=== PATIENT | male | born 1975 | race Caucasian/White ===

== ENCOUNTER 2017-03-25 02:45 | Emergency (ER) | payer OTHER ==
[2017-03-25] MEDS ORDERED: ONDANSETRON 4 MG/2 ML VIAL IVP STA (03:04)
[2017-03-25] MEDS ORDERED: SODIUM CHLORIDE 0.9% 1,000 ML IV STA (03:04)
--- NOTE | 2017-03-25 03:09 | ED ---
General Adult HPI - General Chief complaint: Abdominal Pain Stated complaint: Abdominal/Back Pain Time Seen by Provider: 03/25/17 02:45 Source: patient, RN notes reviewed Mode of arrival: ambulatory Limitations: no limitations - History of Present Illness Initial comments: This is a 41-year-old male who presents emergency Department with a past medical history significant for alcoholism and pancreatitis. Patient states he' s been sober for 8 months and he basically started drinking again. Patient states a few days ago he started having abdominal pain in the epigastric region and he states it radiates to his back. Patient states this is exactly feels when he gets pancreatitis. Patient states she has Zofran at home so has not been vomiting. Patient states she's been drinking up to 8:00 this evening. Patient denies any diarrhea. Patient denies any fever or chills. Patient denies any chest pain difficulty breathing or shortness of breath. Patient denies headache patient denies numbness weakness. - Related Data Home Medications Medication Instructions Recorded Confirmed Lipase/Protease/Amylase [Creon Dr 2 cap PO TID 03/25/17 03/25/17 36,000 Units Capsule] Metoprolol Tartrate [Lopressor] 50 mg PO BID 03/25/17 03/25/17 Allergies Allergy/AdvReac Type Severity Reaction Status Date / Time No Known Allergies Allergy Verified 03/25/17 02:51 Review of Systems ROS Statement: Those systems with pertinent positive or pertinent negative responses have been documented in the HPI. ROS Other: All systems not noted in ROS Statement are negative. Past Medical History Past Medical History: Hypertension, Liver Disease, Renal Disease Additional Past Medical History / Comment(s): pancreatitis History of Any Multi-Drug Resistant Organisms: None Reported Past Surgical History: No Surgical Hx Reported Past Psychological History: No Psychological Hx Reported Smoking Status: Current every day smoker Past Alcohol Use History: Heavy Past Drug Use History: None Reported General Exam - General Exam Comments Initial Comments: GENERAL: Patient is well-developed and well-nourished. Patient is nontoxic and well- hydrated and is in mild distress. Patient appears intoxicated ENT: Neck is soft and supple. No significant lymphadenopathy is noted. Oropharynx is clear. Moist mucous membranes. Neck has full range of motion without eliciting any pain. EYES: The sclera were anicteric and conjunctiva were pink and moist. Extraocular movements were intact and pupils were equal round and reactive to light. Eyelids were unremarkable. PULMONARY: Unlabored respirations. Good breath sounds bilaterally. No audible rales rhonchi or wheezing was noted. CARDIOVASCULAR: There is a regular rate and rhythm without any murmurs gallops or rubs. ABDOMEN: Patient has mild tenderness in the epigastric region. No palpable organomegaly was noted. There is no palpable pulsatile mass. SKIN: Skin is clear with no lesions or rashes and otherwise unremarkable. NEUROLOGIC: Patient is alert and oriented x3. Cranial nerves II through XII are grossly intact. Motor and sensory are also intact. Normal speech, volume and content. Symmetrical smile. MUSCULOSKELETAL: Normal extremities with adequate strength and full range of motion. No lower extremity swelling or edema. No calf tenderness. LYMPHATICS: No significant lymphadenopathy is noted PSYCHIATRIC: Normal psychiatric evaluation. Limitations: no limitations Course Vital Signs 03/25/17 02:47 Temperature 98.9 F Pulse Rate 107 H Respiratory 20 Rate Blood Pressure 149/85 O2 Sat by Pulse 97 Oximetry Medical Decision Making - Medical Decision Making EKG shows a normal sinus rhythm at 93 bpm ID interval is 180 QRS is 88 QT interval 340. Patient's EKG shows no ST segment elevation or depression that seems concerning. I will back to reevaluate the patient he had no abdominal tenderness on second evaluation. I offered the patient GI cocktail consisted he still had some pain in the epigastric region even that wasn't tender to my palpation. He refused. I told the patient would want to get abdominal x-ray he refused that as well. At that was done and the patient was 118 at 5:00. He was walking around ambulate without problem he was clinically sober. - Lab Data Result diagrams: 03/25/17 04:12 03/25/17 04:12 Lab Results 03/25/17 03/25/17 03/25/17 Range/Units 03:35 04:12 04:12 WBC 9.4 (3.8-10.6) k/uL RBC 4.47 (4.30-5.90) m/uL Hgb 14.2 (13.0-17.5) gm/dL Hct 42.5 (39.0-53.0) % MCV 95.2 (80.0-100.0) fL MCH 31.8 (25.0-35.0) pg MCHC 33.5 (31.0-37.0) g/dL RDW 13.2 (11.5-15.5) % Plt Count 183 (150-450) k/uL Neutrophils % 48 % Lymphocytes % 38 % Monocytes % 6 % Eosinophils % 4 % Basophils % 1 % Neutrophils # 4.5 (1.3-7.7) k/uL Lymphocytes # 3.5 (1.0-4.8) k/uL Monocytes # 0.5 (0-1.0) k/uL Eosinophils # 0.4 (0-0.7) k/uL Basophils # 0.1 (0-0.2) k/uL PT 10.6 (9.0-12.0) sec INR 1.1 (<1.1) APTT 24.4 (22.0-30.0) sec Sodium (137-145) mmol/L Potassium (3.5-5.1) mmol/L Chloride (98-107) mmol/L Carbon Dioxide (22-30) mmol/L Anion Gap mmol/L BUN (9-20) mg/dL Creatinine (0.66-1.25) mg/dL Est GFR (MDRD) Af Amer (>60 ml/min/1.73 sqM) Est GFR (MDRD) Non-Af (>60 ml/min/1.73 sqM) Glucose (74-99) mg/dL Calcium (8.4-10.2) mg/dL Total Bilirubin (0.2-1.3) mg/dL AST (17-59) U/L ALT (21-72) U/L Alkaline Phosphatase (38-126) U/L Troponin I <0.012 (0.000-0.034) ng/mL Total Protein (6.3-8.2) g/dL Albumin (3.5-5.0) g/dL Amylase (30-110) U/L Lipase (23-300) U/L Serum Alcohol mg/dL 03/25/17 Range/Units 04:12 WBC (3.8-10.6) k/uL RBC (4.30-5.90) m/uL Hgb (13.0-17.5) gm/dL Hct (39.0-53.0) % MCV (80.0-100.0) fL MCH (25.0-35.0) pg MCHC (31.0-37.0) g/dL RDW (11.5-15.5) % Plt Count (150-450) k/uL Neutrophils % % Lymphocytes % % Monocytes % % Eosinophils % % Basophils % % Neutrophils # (1.3-7.7) k/uL Lymphocytes # (1.0-4.8) k/uL Monocytes # (0-1.0) k/uL Eosinophils # (0-0.7) k/uL Basophils # (0-0.2) k/uL PT (9.0-12.0) sec INR (<1.1) APTT (22.0-30.0) sec Sodium 141 (137-145) mmol/L Potassium 3.9 (3.5-5.1) mmol/L Chloride 110 H (98-107) mmol/L Carbon Dioxide 24 (22-30) mmol/L Anion Gap 7 mmol/L BUN 14 (9-20) mg/dL Creatinine 1.30 H (0.66-1.25) mg/dL Est GFR (MDRD) Af Amer >60 (>60 ml/min/1.73 sqM) Est GFR (MDRD) Non-Af >60 (>60 ml/min/1.73 sqM) Glucose 103 H (74-99) mg/dL Calcium 8.4 (8.4-10.2) mg/dL Total Bilirubin 0.3 (0.2-1.3) mg/dL AST 28 (17-59) U/L ALT 34 (21-72) U/L Alkaline Phosphatase 85 (38-126) U/L Troponin I (0.000-0.034) ng/mL Total Protein 5.7 L (6.3-8.2) g/dL Albumin 3.4 L (3.5-5.0) g/dL Amylase 65 (30-110) U/L Lipase 43 (23-300) U/L Serum Alcohol 180 mg/dL Disposition Clinical Impression: Alcohol intoxication, Epigastric abdominal pain, Abdominal pain Disposition: HOME SELF-CARE Instructions: Abdominal Pain (ED) Referrals: Nonstaff,Physician [Primary Care Provider] - 1-2 days Time of Disposition: 05:25
[2017-03-25 04:23] LABS: Basophils # (A) 0.1 k/uL (0-0.2); Basophils % (A) 1 %; CH 31.8; CHCM 33.5; Eosinophils # (A) 0.4 k/uL (0-0.7); Eosinophils % (A) 4 %; HCT 42.5 % (39.0-53.0); HGB 14.2 gm/dL (13.0-17.5); Luc % (Auto) 3; Lymphocytes # (A) 3.5 k/uL (1.0-4.8); Lymphocytes % (A) 38 %; MCH 31.8 pg (25.0-35.0); MCHC 33.5 g/dL (31.0-37.0); MCV 95.2 fL (80.0-100.0); Mean Platelet Volume 7.5; Monocytes # (A) 0.5 k/uL (0-1.0); Monocytes % (A) 6 %; Neutrophils # (A) 4.5 k/uL (1.3-7.7); Neutrophils % (A) 48 %; RBC 4.47 m/uL (4.30-5.90); RDW 13.2 % (11.5-15.5); WBC 9.4 k/uL (3.8-10.6); WBC (Perox) 9.53
[2017-03-25 04:32] LABS: INR 1.1 (<1.1); Partial Thromboplastin Time 24.4 sec (22.0-30.0); Prothrombin Time 10.6 sec (9.0-12.0)
[2017-03-25 04:33] LABS: ALT 34 U/L (21-72); AST 28 U/L (17-59); Alkaline Phosphatase 85 U/L (38-126); Amylase 65 U/L (30-110); Anion Gap 7 mmol/L; Blood Urea Nitrogen 14 mg/dL (9-20); Calcium 8.4 mg/dL (8.4-10.2); Carbon Dioxide 24 mmol/L (22-30); Chloride 110 mmol/L (98-107); Glucose 103 mg/dL (74-99); Non-African American GFR(MDRD) >60 (>60 ml/min/1.73 sqM); Potassium 3.9 mmol/L (3.5-5.1); Sodium 141 mmol/L (137-145); Total Bilirubin 0.3 mg/dL (0.2-1.3); Total Protein 5.7 g/dL (6.3-8.2)
[2017-03-25 04:34] LABS: Alcohol 180 mg/dL
[2017-03-25 05:34] VITALS: BP 139/86; PULSE 80; RESP 18; TEMP 98
== END 2017-03-25 05:35 | disposition home or self-care (01) ==
LOC: EC 02:45
DX: F10.129 Alcohol abuse with intoxication, unspecified (principal); R10.13 Epigastric pain; I10 Essential (primary) hypertension; F17.200 Nicotine dependence, unspecified, uncomplicated; Z79.899 Other long term (current) drug therapy; Z87.19 Personal history of other diseases of the digestive system
CPT/HCPCS: 36415; 93005; 80053; 82150; 83690; 84484; 85025; 85610; 85730; 80320; 99284; 96374; 96361 ×2; J2405

== ENCOUNTER 2017-04-12 18:59 | Inpatient (IN) | payer OTHER ==
[2017-04-12] MEDS ORDERED: KETOROLAC 30 MG/ML 1 ML VIAL IVP STA (20:53)
[2017-04-12] MEDS ORDERED: ONDANSETRON 4 MG/2 ML VIAL IVP STA (20:53)
[2017-04-12] MEDS ORDERED: LORazepam 2 MG/ML SYRINGE IV STA (20:53)
[2017-04-12] MEDS ORDERED: SODIUM CHLORIDE 0.9% 1,000 ML IV ONE (20:53)
[2017-04-12] MEDS ORDERED: NICOTINE 21MG/24HR PATCH TRANSDERM STA (21:55)
[2017-04-12 22:09] LABS: Appearance,Urine Clear (Clear); Bilirubin,Urine Negative (Negative); Glucose,Urine (UA) Negative (Negative); Ketones,Urine Negative (Negative); Leukocyte Esterase,Urine Negative (Negative); Nitrite,Urine Negative (Negative); PH, Urine 5.5 (5.0-8.0); Particle Count 553; Protein,Urine 2+ (Negative); Specific Gravity,Urine 1.006 (1.001-1.035); UA Billing (MACRO vs. MICRO) MICRO; Urobilinogen,Urine <2.0 mg/dL (<2.0)
[2017-04-12 22:10] LABS: Basophils # (A) 0.1 k/uL (0-0.2); Basophils % (A) 1 %; CH 32.4; CHCM 33.7; Eosinophils # (A) 0.3 k/uL (0-0.7); Eosinophils % (A) 2 %; HCT 50.8 % (39.0-53.0); HDW 2.03; HGB 16.7 gm/dL (13.0-17.5); Luc # (Auto) 0.33; Luc % (Auto) 3; Lymphocytes # (A) 2.6 k/uL (1.0-4.8); Lymphocytes % (A) 20 %; MCH 31.8 pg (25.0-35.0); MCV 96.3 fL (80.0-100.0); Monocytes # (A) 0.5 k/uL (0-1.0); Monocytes % (A) 4 %; Neutrophils # (A) 9.3 k/uL (1.3-7.7); Neutrophils % (A) 72 %; RBC 5.27 m/uL (4.30-5.90); RDW 13.6 % (11.5-15.5); WBC (Perox) 12.43
[2017-04-12 22:19] LABS: ALT 27 U/L (21-72); AST 31 U/L (17-59); Alkaline Phosphatase 120 U/L (38-126); Anion Gap 12 mmol/L; Blood Urea Nitrogen 21 mg/dL (9-20); Calcium 9.1 mg/dL (8.4-10.2); Carbon Dioxide 24 mmol/L (22-30); Chloride 103 mmol/L (98-107); Glucose 97 mg/dL (74-99); Non-African American GFR(MDRD) >60 (>60 ml/min/1.73 sqM); Potassium 4.3 mmol/L (3.5-5.1); Sodium 139 mmol/L (137-145); Total Bilirubin 0.7 mg/dL (0.2-1.3); Total Protein 7.1 g/dL (6.3-8.2)
[2017-04-12 22:20] LABS: Alcohol 120 mg/dL
--- NOTE | 2017-04-12 22:30 | ED ---
General Adult HPI - General Chief complaint: Psychiatric Symptoms Stated complaint: vomiting,abd pain Time Seen by Provider: 04/12/17 20:37 Source: patient, RN notes reviewed Mode of arrival: ambulatory Limitations: no limitations - History of Present Illness Initial comments: 41-year-old male with history of alcohol abuse and chronic pancreatitis presenting for abdominal pain and back pain. Patient states he has been trying to quit drinking and his longest period of sobriety was 5 years. However he has been drinking again recently. He states he normally drinks beer. He states he drank 4-5 cans today. He states his abdominal pain is been worsening and he believes is having acute pancreatitis. He also states he is feeling suicidal due to his chronic pains and alcoholism. He denies any specific plan. He denies other drug use. He states he is worried he is going into alcohol withdrawal. - Related Data Home Medications Medication Instructions Recorded Confirmed Lipase/Protease/Amylase [Lois Cunningham 2 cap PO AC-TID 03/25/17 04/12/17 36,000 Units Capsule] Albuterol Inhaler [Ventolin Hfa 2 puff INHALATION RT-Q4H PRN 04/12/17 04/12/17 Inhaler] Cholecalciferol [Vitamin D3] 2,000 unit PO DAILY 04/12/17 04/12/17 Gabapentin [Neurontin] 100 mg PO QAM 04/12/17 04/12/17 Lipase/Protease/Amylase [Lois Cunningham 1 cap PO DAILY PRN 04/12/17 04/12/17 36,000 Units Capsule] Metoprolol Tartrate [Lopressor] 50 mg PO BID-W/MEALS 04/12/17 04/12/17 Tadalafil [Cialis] 5 mg PO DAILY PRN 04/12/17 04/12/17 Tiotropium [place] [Spiriva 2 puff INHALATION RT-DAILY 04/12/17 04/12/17 Respimat] buPROPion XL [Wellbutrin XL] 150 mg PO QAM 04/12/17 04/12/17 rOPINIRole HCL [Requip] 0.5 mg PO HS PRN 04/12/17 04/12/17 Previous Rx's Medication Instructions Recorded hydrOXYzine PAMOATE [Vistaril] 25 mg PO Q6HR PRN #90 cap 04/14/17 Allergies Allergy/AdvReac Type Severity Reaction Status Date / Time No Known Allergies Allergy Verified 04/12/17 20:35 Review of Systems ROS Statement: Those systems with pertinent positive or pertinent negative responses have been documented in the HPI. ROS Other: All systems not noted in ROS Statement are negative. Past Medical History Past Medical History: Hypertension, Liver Disease, Renal Disease Additional Past Medical History / Comment(s): pancreatitis History of Any Multi-Drug Resistant Organisms: None Reported Past Surgical History: No Surgical Hx Reported Past Psychological History: No Psychological Hx Reported Smoking Status: Current every day smoker Past Alcohol Use History: Heavy Past Drug Use History: None Reported - Past Family History Mother Additional Family Medical History / Comment(s): Mother is alive at age 62 with history of hypertension. Father Additional Family Medical History / Comment(s): Father at age 36 from overdose of methadone and benzodiazepines with aspiration. Brother(s) Additional Family Medical History / Comment(s): Patient has 2 brothers with no major medical problems. Patient does not have any sisters. Patient does not have any children. General Exam - General Exam Comments Initial Comments: General: Awake and Alert. No acute distress. Does not appear acutely ill. Eyes: TIN, EOM intact. No nystagmus. No scleral icterus. HENT: Atraumatic, normocephalic. Mucous membranes moist. Trachea midline. Neck: The neck is supple, there is no tenderness or JVD. Cardiovascular: Regular rate and rhythm. No murmur, rub, or gallop is appreciated. Distal pulses intact. Respiratory: Lungs are clear to auscultation bilaterally. No wheezes, rales, rhonchi. No respiratory distress. Gastrointestinal: Soft, mild diffuse tenderness. No rebound or guarding. Non- distended. No masses or organomegaly noted. No CVA tenderness. Musculoskeletal: No tenderness. Normal ROM. No gross deformity. No strength deficits. Neurological: A&Ox3. CN II-XII grossly intact, There are no obvious motor or sensory deficits. Coordination appears grossly intact. Speech is normal. Mild tremor. Skin: Skin is warm and dry and no rashes or lesions are noted. Psychiatric: Cooperative. Positive suicidal ideations. Limitations: no limitations Course Vital Signs 04/12/17 04/12/17 04/13/17 19:39 21:53 02:49 Temperature 97.2 F L Pulse Rate 58 L 102 H 97 Respiratory 20 18 16 Rate Blood Pressure 123/84 138/79 131/97 O2 Sat by Pulse 98 97 97 Oximetry Medical Decision Making - Medical Decision Making 41-year-old male with history of alcohol abuse and chronic pancreatitis presenting for abdominal pain. Patient also with suicidal ideations, although no specific plan. Does admit to drinking today. Initial alcohol 120. Lab work with mild leukocytosis, likely reactive abdominal pain and nausea and vomiting. BMP stable. LFTs stable. Lipase is negative. UDS positive benzodiazepines. Patient requesting pain medications multiple times. MAPS report was run without any evidence of home narcotic medications since June 2016 for a short term Rx. Given his intoxicated state no additional narcotic medications were given at this time due to no evidence of acute pancreatitis. Given negative medical workup at this time, patient to be cleared once sober for mental health evaluation due to suicidal ideations and substance abuse. 12:00 AM. Repeat alcohol below legal limit. Patient was medically cleared for EPS evaluation. Patient signed out overnight physician pending EPS evaluation and final disposition. Late entry 04/14/17 Patient was admitted to psych floor. - Lab Data Result diagrams: 04/12/17 21:57 04/12/17 21:57 Lab Results 04/12/17 04/12/17 04/12/17 Range/Units 21:57 21:57 21:57 WBC 13.0 H (3.8-10.6) k/uL RBC 5.27 (4.30-5.90) m/uL Hgb 16.7 (13.0-17.5) gm/dL Hct 50.8 (39.0-53.0) % MCV 96.3 (80.0-100.0) fL MCH 31.8 (25.0-35.0) pg MCHC 33.0 (31.0-37.0) g/dL RDW 13.6 (11.5-15.5) % Plt Count 229 (150-450) k/uL Neutrophils % 72 % Lymphocytes % 20 % Monocytes % 4 % Eosinophils % 2 % Basophils % 1 % Neutrophils # 9.3 H (1.3-7.7) k/uL Lymphocytes # 2.6 (1.0-4.8) k/uL Monocytes # 0.5 (0-1.0) k/uL Eosinophils # 0.3 (0-0.7) k/uL Basophils # 0.1 (0-0.2) k/uL Sodium 139 (137-145) mmol/L Potassium 4.3 (3.5-5.1) mmol/L Chloride 103 (98-107) mmol/L Carbon Dioxide 24 (22-30) mmol/L Anion Gap 12 mmol/L BUN 21 H (9-20) mg/dL Creatinine 1.23 (0.66-1.25) mg/dL Est GFR (MDRD) Af Amer >60 (>60 ml/min/1.73 sqM) Est GFR (MDRD) Non-Af >60 (>60 ml/min/1.73 sqM) Glucose 97 (74-99) mg/dL Calcium 9.1 (8.4-10.2) mg/dL Total Bilirubin 0.7 (0.2-1.3) mg/dL AST 31 (17-59) U/L ALT 27 (21-72) U/L Alkaline Phosphatase 120 (38-126) U/L Total Protein 7.1 (6.3-8.2) g/dL Albumin 4.2 (3.5-5.0) g/dL Lipase 41 (23-300) U/L TSH (0.465-4.680) mIU/L Urine Color Urine Appearance (Clear) Urine pH (5.0-8.0) Ur Specific [place] (1.001-1.035) Urine Protein (Negative) Urine Glucose (UA) (Negative) Urine Ketones (Negative) Urine Blood (Negative) Urine Nitrite (Negative) Urine Bilirubin (Negative) Urine Urobilinogen (<2.0) mg/dL Ur Leukocyte Esterase (Negative) Urine Opiates Screen Not Detected (NotDetected) Ur Oxycodone Screen Not Detected (NotDetected) Urine Methadone Screen Not Detected (NotDetected) Ur Propoxyphene Screen Not Detected (NotDetected) Ur Barbiturates Screen Not Detected (NotDetected) U Tricyclic Antidepress Not Detected (NotDetected) Ur Phencyclidine Scrn Not Detected (NotDetected) Ur Amphetamines Screen Not Detected (NotDetected) U Methamphetamines Scrn Not Detected (NotDetected) U Benzodiazepines Scrn Detected H (NotDetected) Urine Cocaine Screen Not Detected (NotDetected) U Marijuana (THC) Screen Not Detected (NotDetected) Serum Alcohol 120 mg/dL 04/12/17 04/12/17 Range/Units 21:57 21:57 WBC (3.8-10.6) k/uL RBC (4.30-5.90) m/uL Hgb (13.0-17.5) gm/dL Hct (39.0-53.0) % MCV (80.0-100.0) fL MCH (25.0-35.0) pg MCHC (31.0-37.0) g/dL RDW (11.5-15.5) % Plt Count (150-450) k/uL Neutrophils % % Lymphocytes % % Monocytes % % Eosinophils % % Basophils % % Neutrophils # (1.3-7.7) k/uL Lymphocytes # (1.0-4.8) k/uL Monocytes # (0-1.0) k/uL Eosinophils # (0-0.7) k/uL Basophils # (0-0.2) k/uL Sodium (137-145) mmol/L Potassium (3.5-5.1) mmol/L Chloride (98-107) mmol/L Carbon Dioxide (22-30) mmol/L Anion Gap mmol/L BUN (9-20) mg/dL Creatinine (0.66-1.25) mg/dL Est GFR (MDRD) Af Amer (>60 ml/min/1.73 sqM) Est GFR (MDRD) Non-Af (>60 ml/min/1.73 sqM) Glucose (74-99) mg/dL Calcium (8.4-10.2) mg/dL Total Bilirubin (0.2-1.3) mg/dL AST (17-59) U/L ALT (21-72) U/L Alkaline Phosphatase (38-126) U/L Total Protein (6.3-8.2) g/dL Albumin (3.5-5.0) g/dL Lipase (23-300) U/L TSH 0.892 (0.465-4.680) mIU/L Urine Color Light Yellow Urine Appearance Clear (Clear) Urine pH 5.5 (5.0-8.0) Ur Specific [place] 1.006 (1.001-1.035) Urine Protein 2+ H (Negative) Urine Glucose (UA) Negative (Negative) Urine Ketones Negative (Negative) Urine Blood Negative (Negative) Urine Nitrite Negative (Negative) Urine Bilirubin Negative (Negative) Urine Urobilinogen <2.0 (<2.0) mg/dL Ur Leukocyte Esterase Negative (Negative) Urine Opiates Screen (NotDetected) Ur Oxycodone Screen (NotDetected) Urine Methadone Screen (NotDetected) Ur Propoxyphene Screen (NotDetected) Ur Barbiturates Screen (NotDetected) U Tricyclic Antidepress (NotDetected) Ur Phencyclidine Scrn (NotDetected) Ur Amphetamines Screen (NotDetected) U Methamphetamines Scrn (NotDetected) U Benzodiazepines Scrn (NotDetected) Urine Cocaine Screen (NotDetected) U Marijuana (THC) Screen (NotDetected) Serum Alcohol mg/dL Disposition Clinical Impression: Alcohol abuse, Alcohol intoxication, Abdominal pain, Suicidal ideation Disposition: ADMITTED IP TO THIS [facility] Condition: Stable Decision to Admit Reason: Admit from EC
[2017-04-13 02:50] VITALS: RESP 16
[2017-04-13] MEDS ORDERED: LORazepam 1 MG TAB ONE ×2 (03:23→03:55)
[2017-04-13] MEDS ORDERED: MAGNESIUM HYDROXIDE 2,400 MG/10 ML CUP PO PRN (06:21)
[2017-04-13] MEDS ORDERED: ZIPRASIDONE 20 MG VIAL IM PRN (06:21)
[2017-04-13] MEDS ORDERED: MAG HYDROX/AL HYDROX/SIMETH 30 ML CUP PO PRN (06:21)
[2017-04-13] MEDS ORDERED: LIPASE 5,000/PROTEASE 17,000/AMYLASE 27,0000 PO PRN (06:41)
[2017-04-13] MEDS: LIPASE 5,000/PROTEASE 17,000/AMYLASE 27,0000 PO SCH ×3 (08:28→18:10)
[2017-04-13] MEDS: METOPROLOL TARTRATE 50 MG TAB PO SCH ×2 (08:29→18:10)
[2017-04-13] MEDS: buPROPion XL 150 MG TAB.ER.24H PO SCH (08:29)
[2017-04-13] MEDS: GABAPENTIN 100 MG CAP PO SCH (08:30)
[2017-04-13] MEDS: NICOTINE 21MG/24HR PATCH TRANSDERM SCH (08:30)
[2017-04-13] MEDS: LORazepam 1 MG TAB PO PRN ×3 (08:33→22:56)
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
[2017-04-13] MEDS: ONDANSETRON 4 MG TAB PO PRN (10:21)
[2017-04-13] MEDS: TIOTROPIUM 18 MCG/PUFF INHALER INHALATION SCH (12:12)
[2017-04-13] MEDS: CHOLECALCIFEROL 1,000 UNIT TAB PO SCH (13:03)
--- NOTE | 2017-04-13 15:26 | P.CONS ---
History of Present Illness - Reason for Consult Consult date: 04/13/17 Medical management - History of Present Illness This is a 41-year-old male. He does not have a primary care physician. He has a past medical history of COPD, chronic alcoholic pancreatitis, can't scratch fever,. Patient states he has chronic pain and has been drinking but he's had trouble due to vomiting. He states he only drank 2 beers yesterday and could not keep it down. He came into [facility] emergency center for evaluation. He states he received one bag of IV fluids in the emergency center. Serum alcohol level was 120. Urine drug screen was positive for benzodiazepines. TSH 0.892. Patient has been admitted to the mental health unit. Review of Systems All systems: negative Constitutional: Denies chills, Denies fever Eyes: denies blurred vision, denies pain Ears, nose, mouth and throat: Denies headache, Denies sore throat Cardiovascular: Denies chest pain, Denies shortness of breath Respiratory: Denies cough Gastrointestinal: Denies abdominal pain, Denies diarrhea, Denies nausea, Denies vomiting Musculoskeletal: Denies myalgias Integumentary: Denies pruritus, Denies rash Neurological: Denies numbness, Denies weakness Psychiatric: Reports depression, Denies anxiety Endocrine: Denies fatigue, Denies weight change Past Medical History Past Medical History: COPD, Hypertension, Liver Disease, Renal Disease Additional Past Medical History / Comment(s): Chronic alcoholic pancreatitis, cat scratch fever History of Any Multi-Drug Resistant Organisms: None Reported Past Surgical History: No Surgical Hx Reported Additional Past Surgical History / Comment(s): Bronchoscopy, lymph node removed Past Psychological History: No Psychological Hx Reported Smoking Status: Current every day smoker Past Alcohol Use History: Heavy Additional Past Alcohol Use History / Comment(s): Patient is a smoker of one and half packs per day since he was 15 years of age. He denies any medical marijuana, marijuana, street drug use. He usually drinks more than a fifth per day and drinks both liquor and beer. Past Drug Use History: None Reported - Past Family History Mother Additional Family Medical History / Comment(s): Mother is alive at age 62 with history of hypertension. Father Additional Family Medical History / Comment(s): Father at age 36 from overdose of methadone and benzodiazepines with aspiration. Brother(s) Additional Family Medical History / Comment(s): Patient has 2 brothers with no major medical problems. Patient does not have any sisters. Patient does not have any children. Medications and Allergies Home Medications Medication Instructions Recorded Confirmed Type Lipase/Protease/Amylase [Lois Cunningham 2 cap PO AC-TID 03/25/17 04/12/17 History 36,000 Units Capsule] Albuterol Inhaler [Ventolin Hfa 2 puff INHALATION RT-Q4H PRN 04/12/17 04/12/17 History Inhaler] Cholecalciferol [Vitamin D3] 2,000 unit PO DAILY 04/12/17 04/12/17 History Gabapentin [Neurontin] 100 mg PO QAM 04/12/17 04/12/17 History Lipase/Protease/Amylase [Lois Cunningham 1 cap PO DAILY PRN 04/12/17 04/12/17 History 36,000 Units Capsule] Metoprolol Tartrate [Lopressor] 50 mg PO BID-W/MEALS 04/12/17 04/12/17 History Tadalafil [Cialis] 5 mg PO DAILY PRN 04/12/17 04/12/17 History Tiotropium [place] [Spiriva 2 puff INHALATION RT-DAILY 04/12/17 04/12/17 History Respimat] buPROPion XL [Wellbutrin Xl] 150 mg PO QAM 04/12/17 04/12/17 History rOPINIRole HCL [Requip] 0.5 mg PO HS PRN 04/12/17 04/12/17 History Allergies Allergy/AdvReac Type Severity Reaction Status Date / Time No Known Allergies Allergy Verified 04/12/17 20:35 Physical Exam Vitals: Vital Signs Temp Pulse Pulse Resp BP BP Pulse Ox 04/13/17 13:05 91 126/88 04/13/17 06:11 98.1 F 93 16 138/101 04/13/17 02:49 97 16 131/97 97 04/12/17 21:53 102 H 18 138/79 97 04/12/17 19:39 97.2 F L 58 L 20 123/84 98 Intake and Output 04/12/17 04/13/17 04/13/17 22:59 06:59 14:59 Other: Weight 90.718 kg 89.046 kg Gen: This is a 41-year-old male. He is cooperative and appears to be in no acute distress. HEENT: Head is atraumatic, normocephalic. Pupils equal, round. Sclerae is anicteric. NECK: Supple. No JVD. No lymphadenopathy. No thyromegaly. LUNGS: Clear to auscultation. No wheezes or rhonchi. No intercostal retractions. HEART: Regular rate and rhythm. No murmur. ABDOMEN: Soft. Bowel sounds are present. No masses. No tenderness. EXTREMITIES: No pedal edema. No calf tenderness. NEUROLOGICAL: Patient is awake, alert and oriented x3. Cranial nerves 2 through 12 are grossly intact. Results CBC & Chem 7: 04/12/17 21:57 04/12/17 21:57 Labs: Abnormal Lab Results - Last 24 Hours (Table) 04/12/17 04/12/17 04/12/17 Range/Units 21:57 21:57 21:57 WBC 13.0 H (3.8-10.6) k/uL Neutrophils # 9.3 H (1.3-7.7) k/uL BUN 21 H (9-20) mg/dL Urine Protein (Negative) U Benzodiazepines Scrn Detected H (NotDetected) 04/12/17 Range/Units 21:57 WBC (3.8-10.6) k/uL Neutrophils # (1.3-7.7) k/uL BUN (9-20) mg/dL Urine Protein 2+ H (Negative) U Benzodiazepines Scrn (NotDetected) Assessment and Plan Plan: 1. Depression with history of alcohol abuse. Patient admitted to the mental health unit. Continue current plan of care. 2. History of chronic alcoholic pancreatitis. Continue Creon. 3. Tobacco use and dependence. Continue nicotine patch. 4. COPD. Continue Ventolin inhaler and Spiriva. 5. Hypertension. Continue metoprolol 50 mg twice daily. Impression and plan of care have been directed as dictated by the signing physician. Nicki Wilson nurse practitioner acting as scribe for signing physician.
[2017-04-13] MEDS: ALBUTEROL INHALER 60 PUFF/8 GM INHALER INHALATION PRN (19:14)
[2017-04-14] MEDS: LORazepam 1 MG TAB PO PRN (07:00)
[2017-04-14] MEDS: ONDANSETRON 4 MG TAB PO PRN ×2 (07:10→16:54)
[2017-04-14] MEDS: ACETAMINOPHEN TAB 325 MG TAB PO PRN ×2 (07:14→17:59)
[2017-04-14] MEDS: METOPROLOL TARTRATE 50 MG TAB PO SCH ×2 (09:02→17:31)
[2017-04-14] MEDS: LIPASE 5,000/PROTEASE 17,000/AMYLASE 27,0000 PO SCH ×3 (09:02→16:54)
[2017-04-14] MEDS: GABAPENTIN 100 MG CAP PO SCH (09:03)
[2017-04-14] MEDS: buPROPion XL 150 MG TAB.ER.24H PO SCH (09:03)
[2017-04-14] MEDS: NICOTINE 21MG/24HR PATCH TRANSDERM SCH (09:04)
[2017-04-14] MEDS: TIOTROPIUM 18 MCG/PUFF INHALER INHALATION SCH (10:53)
[2017-04-14] MEDS: ALBUTEROL INHALER 60 PUFF/8 GM INHALER INHALATION PRN ×2 (10:53→21:56)
--- NOTE | 2017-04-14 12:52 | P.PN ---
Progress Note - Text INTERVERAL HISTORY:Patient admitted for vague suicidal ideation secondary to pain of pancreatitis, no plan. Reported history of etoh use, mod-severe. Recently at [facility] but left early, now wanting to retry. Pain is tolerable. Patient's mood/euthymic is seen as when interacting on unit, but irritable at times with staff and constricted in interview. Patient has an option of going to 3/4 house today. Denies suicidal ideation Selected Entries 04/13/17 04/14/17 22:57 06:59 Temperature 98.3 F Pulse Rate 88 69 Left Sitting Respiratory 16 Rate Blood Pressure 128/83 127/69 Left Arm Sitting Blood Pressure 98 88 Mean Left Arm Sitting MENTAL STATUS EXAM:Patient alert and oriented 3, good eye contact, fair groomed in street clothing. Speech normal volume, rate and production. Coherent, logical and goal directed thought process. No ANNA, no FOI. No TB/TW/ TI Denied auditory and visual hallucinations. Denied paranoid ideation, delusions or IOR. Memory intact Cognitionaverage Mood neutral , affect full range, normal intensity, congruent with mood. Denies suicidal ideation, denies homicidal ideation. Insight limited; Judgment grossly intact No evidence of withdrawal, VSS stable. ETOH use, severe, PLAN:Discharge today to [facility], patient has pending appointment for [facility]
[2017-04-14] MEDS: CHOLECALCIFEROL 1,000 UNIT TAB PO SCH (13:04)
--- NOTE | 2017-04-14 13:16 | P.DS ---
Providers Date of admission: 04/13/17 02:37 Expected date of discharge: 04/14/17 Attending physician: Giovanna Stephenson MD Consults: 04/13/17 06:21 Consult Physician Routine Consulting Provider: Kasey Groves Consult Reason/Comments: H & P and medical follow up Do you want consulting provider notified?: Yes, Notify in am Primary care physician: Stated None Hospital Course: Patient admitted for vague suicidal ideation secondary to pain of pancreatitis, no plan. Reported history of etoh use, mod-severe. Recently at [facility] but left early, now wanting to retry. Pain is tolerable. Patient's mood/euthymic is seen as when interacting on unit, but irritable at times with staff and constricted in interview. Patient has an option of going to 3/4 house today. Denies suicidal ideation Selected Entries 04/13/17 04/14/17 22:57 06:59 Temperature 98.3 F Pulse Rate 88 69 Left Sitting Respiratory 16 Rate Blood Pressure 128/83 127/69 Left Arm Sitting Blood Pressure 98 88 Mean Left Arm Sitting MENTAL STATUS EXAM:Patient alert and oriented 3, good eye contact, fair groomed in street clothing. Speech normal volume, rate and production. Coherent, logical and goal directed thought process. No ANNA, no FOI. No TB/TW/ TI Denied auditory and visual hallucinations. Denied paranoid ideation, delusions or IOR. Memory intact Cognitionaverage Mood neutral , affect full range, normal intensity, congruent with mood. Denies suicidal ideation, denies homicidal ideation. Insight limited; Judgment grossly intact No evidence of withdrawal, VSS stable. No suicidal ideation, plan or intent ETOH use, severe, PLAN:Discharge today to [facility], patient has pending appointment for [facility] Pertinent Studies: none Procedures: none Patient Condition at Discharge: Stable Plan - Discharge Summary New Discharge Prescriptions: hydrOXYzine PAMOATE [Vistaril] 25 mg PO Q6HR PRN #90 cap PRN Reason: Anxiety Discharge Medication List Lipase/Protease/Amylase [Lois Cunningham 36,000 Units Capsule] 2 cap PO AC-TID [History] Albuterol Inhaler [Ventolin Hfa Inhaler] 2 puff INHALATION RT-Q4H PRN 04/12/17 [ History] Cholecalciferol [Vitamin D3] 2,000 unit PO DAILY 04/12/17 [History] Gabapentin [Neurontin] 100 mg PO QAM 04/12/17 [History] Lipase/Protease/Amylase [Lois Cunningham 36,000 Units Capsule] 1 cap PO DAILY PRN 04/12 [History] Metoprolol Tartrate [Lopressor] 50 mg PO BID-W/MEALS 04/12/17 [History] Tadalafil [Cialis] 5 mg PO DAILY PRN 04/12/17 [History] Tiotropium [place] [Spiriva Respimat] 2 puff INHALATION RT-DAILY 04/12/17 [ History] buPROPion XL [Wellbutrin XL] 150 mg PO QAM 04/12/17 [History] rOPINIRole HCL [Requip] 0.5 mg PO HS PRN 04/12/17 [History] hydrOXYzine PAMOATE [Vistaril] 25 mg PO Q6HR PRN #90 cap 04/14/17 [Rx] Follow up Appointment(s)/Referral(s): [facility] [Outside] - 04/28/17 10:15 am (Intake 04/28/17 at 10: 15 am) None,Stated [Primary Care Provider] - 1-2 days Discharge Disposition: HOME SELF-CARE
[2017-04-14] MEDS: hydrOXYzine PAMOATE 25 MG CAP PO PRN (16:53)
[2017-04-15 06:50] VITALS: BP 135/86; PULSE 79; TEMP 98.2
[2017-04-15] MEDS: METOPROLOL TARTRATE 50 MG TAB PO SCH (08:08)
[2017-04-15] MEDS: buPROPion XL 150 MG TAB.ER.24H PO SCH (08:08)
[2017-04-15] MEDS: LIPASE 5,000/PROTEASE 17,000/AMYLASE 27,0000 PO SCH ×2 (08:08→12:56)
[2017-04-15] MEDS: GABAPENTIN 100 MG CAP PO SCH (08:08)
[2017-04-15] MEDS: NICOTINE 21MG/24HR PATCH TRANSDERM SCH (08:08)
[2017-04-15] MEDS: hydrOXYzine PAMOATE 25 MG CAP PO PRN (08:09)
[2017-04-15] MEDS: ALBUTEROL INHALER 60 PUFF/8 GM INHALER INHALATION PRN (09:06)
[2017-04-15] MEDS: TIOTROPIUM 18 MCG/PUFF INHALER INHALATION SCH (09:06)
[2017-04-15] MEDS: ACETAMINOPHEN TAB 325 MG TAB PO PRN (09:14)
--- NOTE | 2017-04-15 09:57 | P.DS ---
Providers Date of admission: 04/13/17 02:37 Attending physician: Giovanna Stephenson MD Consults: 04/13/17 06:21 Consult Physician Routine Consulting Provider: Kasey Groves Consult Reason/Comments: H & P and medical follow up Do you want consulting provider notified?: Yes, Notify in am Primary care physician: Stated None Hospital Course: Hospital Course: Patient admitted for vague suicidal ideation secondary to pain of pancreatitis, no plan. Reported history of etoh use, mod-severe. Recently at [facility] but left early, now wanting to retry. Pain is tolerable. Patient's mood/euthymic is seen as when interacting on unit, but irritable at times with staff and constricted in interview. Patient has an option of going to 3/4 house and after agreeing he changed his mind and told nursing staff he did not want to leave. He gave conflicting history of suicide ideation, tried to blame nursing for misunderstanding. Today he reports he was angry last night, felt like throwing a chair but did not. Says if he had left he'd have drank. Now stating if he is not getting more ativan there is no reason for him to be here. He took vistaril last night with some impact, and wants to continue until he is in the rehab. Asked patient multiple times and he denies suicidal ideation. Has plan to call [facility] and AA, vague when asked if he has sponsor MENTAL STATUS EXAM:Patient alert and oriented 3, good eye contact, fair groomed in street clothing. Speech normal volume, rate and production. Coherent, logical and goal directed thought process. No ANNA, no FOI. No TB/TW/ TI Denied auditory and visual hallucinations. Denied paranoid ideation, delusions or IOR. Memory intact Cognitionaverage Mood neutral to irritable , affect full range, normal intensity, congruent with mood. Denies suicidal ideation, denies homicidal ideation. Insight limited; Judgment grossly intact No evidence of withdrawal, VSS stable. No suicidal ideation, plan or intent ETOH use, severe, PLAN:Discharge today to home, he says he can call Rei at [facility] for bed. Patient has pending appointment for [facility] Selected Entries 04/13/17 04/14/17 04/14/17 22:57 06:59 16:55 Pulse Rate [ 88 69 Left Sitting] Pulse Rate [ 78 Left Standing Brachial] Pulse Rate [ Right Standing Brachial] 04/14/17 04/14/17 04/15/17 17:31 18:57 06:49 Pulse Rate [ Left Sitting] Pulse Rate [ Left Standing Brachial] Pulse Rate [ 88 84 79 Right Standing Brachial] Pertinent Studies: none Procedures: none Patient Condition at Discharge: Stable Plan - Discharge Summary New Discharge Prescriptions: hydrOXYzine PAMOATE [Vistaril] 25 mg PO Q6HR PRN #90 cap PRN Reason: Anxiety Discharge Medication List Lipase/Protease/Amylase [Lois Cunningham 36,000 Units Capsule] 2 cap PO AC-TID [History] Albuterol Inhaler [Ventolin Hfa Inhaler] 2 puff INHALATION RT-Q4H PRN 04/12/17 [ History] Cholecalciferol [Vitamin D3] 2,000 unit PO DAILY 04/12/17 [History] Gabapentin [Neurontin] 100 mg PO QAM 04/12/17 [History] Lipase/Protease/Amylase [Lois Cunningham 36,000 Units Capsule] 1 cap PO DAILY PRN 04/12 [History] Metoprolol Tartrate [Lopressor] 50 mg PO BID-W/MEALS 04/12/17 [History] Tadalafil [Cialis] 5 mg PO DAILY PRN 04/12/17 [History] Tiotropium [place] [Spiriva Respimat] 2 puff INHALATION RT-DAILY 04/12/17 [ History] buPROPion XL [Wellbutrin XL] 150 mg PO QAM 04/12/17 [History] rOPINIRole HCL [Requip] 0.5 mg PO HS PRN 04/12/17 [History] hydrOXYzine PAMOATE [Vistaril] 25 mg PO Q6HR PRN #90 cap 04/14/17 [Rx] Follow up Appointment(s)/Referral(s): [facility] [Outside] - 04/20/17 10:00 am (Intake 04/20/17 at 10 :00 am with Melodie Ponce) [facility] [Outside] - 04/28/17 10:15 am (Intake 04/28/17 at 10: 15 am) None,Stated [Primary Care Provider] - 1-2 days Patient Instructions/Handouts: Depression (DC), Suicide Prevention for Adults ( DC) Activity/Diet/Wound Care/Special Instructions: No alcohol or street drugs, activity as tolerated, diet as tolerated, remove firearms from home. Follow up with outpatient provider as set up at time of discharge, follow up with PCP in one to two days. Call crisis line or [phone] if having thoughts of hurting himself or anyone else.
[2017-04-15] MEDS: ONDANSETRON 4 MG TAB PO PRN (10:06)
[2017-04-15] MEDS: CHOLECALCIFEROL 1,000 UNIT TAB PO SCH (12:56)
== END 2017-04-15 13:40 | disposition home or self-care (01) | DRG 896 ==
LOC: EC 18:59 → 3MHU 04-13 02:37
PROVIDERS: ADMIT Psychiatry & Neurology Addiction Medicine; ATTEND Psychiatry & Neurology Addiction Medicine
DX: F10.229 Alcohol dependence with intoxication, unspecified (principal); K85.90 Acute pancreatitis without necrosis or infection, unspecified; R45.851 Suicidal ideations; K86.0 Alcohol-induced chronic pancreatitis; I10 Essential (primary) hypertension; F17.200 Nicotine dependence, unspecified, uncomplicated; G89.29 Other chronic pain; J44.9 Chronic obstructive pulmonary disease, unspecified; Y90.6 Blood alcohol level of 120-199 mg/100 ml; Z79.899 Other long term (current) drug therapy; Z81.3 Family history of other psychoactive substance abuse and dependence; Z82.49 Family history of ischemic heart disease and other diseases of the circulatory system
CPT/HCPCS: 36415; 80053; 80306; 80320; 81001; 82075; 83690; 84443; 85025; 94640

== ENCOUNTER 2017-06-28 02:08 | Emergency (ER) | payer SELFPAY ==
[2017-06-28 02:16] VITALS: BP 160/117; PULSE 87; RESP 18; TEMP 97.3
[2017-06-28] MEDS ORDERED: KETOROLAC 60 MG/2 ML VIAL IM STA (02:45)
[2017-06-28] MEDS ORDERED: CLINDAMYCIN 150 MG CAP PO STA (02:48)
--- NOTE | 2017-06-28 02:50 | ED ---
ENT HPI - General Chief complaint: Dental/Oral Stated complaint: Dental Pain Time Seen by Provider: 06/28/17 02:17 Source: patient, RN notes reviewed Mode of arrival: ambulatory Limitations: no limitations - History of Present Illness Initial comments: Patient is a 41-year-old male presents emergency room for evaluation of right upper dental pain. Patient states he's had this pain for the past week. Patient states he went to his primary care provider last week and is placed on Pen-Vee K. Patient states he finished antibiotic yesterday still continuing to have pain is now having mild swelling in the right side of his face. Patient states he's having constant pain and thought he should be evaluated. Patient states he been taking ibuprofen with no relief of symptoms. Patient denies trouble swallowing. Patient denies fevers or chills. Patient denies nausea or vomiting. Patient states he has a dental appointment scheduled for Wednesday. - Related Data Home Medications Medication Instructions Recorded Confirmed Lipase/Protease/Amylase [Lois Cunningham 2 cap PO AC-TID 03/25/17 06/28/17 36,000 Units Capsule] Albuterol Inhaler [Ventolin Hfa 2 puff INHALATION RT-Q4H PRN 04/12/17 06/28/17 Inhaler] Cholecalciferol [Vitamin D3] 2,000 unit PO DAILY 04/12/17 06/28/17 Gabapentin [Neurontin] 100 mg PO QAM 04/12/17 06/28/17 Lipase/Protease/Amylase [Lois Cunningham 1 cap PO DAILY PRN 04/12/17 06/28/17 36,000 Units Capsule] Metoprolol Tartrate [Lopressor] 50 mg PO BID-W/MEALS 04/12/17 06/28/17 Tadalafil [Cialis] 5 mg PO DAILY PRN 04/12/17 06/28/17 Tiotropium [place] [Spiriva 2 puff INHALATION RT-DAILY 04/12/17 06/28/17 Respimat] buPROPion XL [Wellbutrin XL] 150 mg PO QAM 04/12/17 06/28/17 rOPINIRole HCL [Requip] 0.5 mg PO HS PRN 04/12/17 06/28/17 Previous Rx's Medication Instructions Recorded hydrOXYzine PAMOATE [Vistaril] 25 mg PO Q6HR PRN #90 cap 04/14/17 Clindamycin [Cleocin] 300 mg PO Q6H 7 Days 06/28/17 HYDROcodone/APAP 5-325MG [[place] 1 tab PO Q6HR PRN #12 tab 06/28/17 5-325] Allergies Allergy/AdvReac Type Severity Reaction Status Date / Time No Known Allergies Allergy Verified 06/28/17 02:16 Review of Systems ROS Statement: Those systems with pertinent positive or pertinent negative responses have been documented in the HPI. ROS Other: All systems not noted in ROS Statement are negative. Past Medical History Past Medical History: Hypertension, Liver Disease, Renal Disease Additional Past Medical History / Comment(s): pancreatitis History of Any Multi-Drug Resistant Organisms: None Reported Past Surgical History: No Surgical Hx Reported Additional Past Surgical History / Comment(s): Bronchoscopy, lymph node removed Past Psychological History: No Psychological Hx Reported Smoking Status: Current every day smoker Past Alcohol Use History: Heavy Past Drug Use History: None Reported - Past Family History Mother Additional Family Medical History / Comment(s): Mother is alive at age 62 with history of hypertension. Father Additional Family Medical History / Comment(s): Father at age 36 from overdose of methadone and benzodiazepines with aspiration. Brother(s) Additional Family Medical History / Comment(s): Patient has 2 brothers with no major medical problems. Patient does not have any sisters. Patient does not have any children. General Exam - General Exam Comments Initial Comments: Sitting in exam room, no acute distress. Limitations: no limitations General appearance: alert, in no apparent distress Head exam: Present: atraumatic, normocephalic, normal inspection Eye exam: Present: normal appearance Expanded Mouth exam: Present: laceration ( very mild right-sided facial edema) Teeth exam: Present: dental caries, fractured tooth # (2), dental tenderness # ( 2) Throat exam: normal inspection Neck exam: Present: normal inspection Respiratory exam: Absent: respiratory distress Extremities exam: Present: normal inspection Back exam: Present: normal inspection Neurological exam: Present: alert, oriented X3, CN II-XII intact Psychiatric exam: Present: normal affect, normal mood Skin exam: Present: warm, dry, intact, normal color. Absent: rash Course Vital Signs 06/28/17 02:12 Temperature 97.3 F L Pulse Rate 87 Respiratory 18 Rate Blood Pressure 160/117 O2 Sat by Pulse 99 Oximetry Medical Decision Making - Medical Decision Making patient is a 41-year-old male presents emergency room for violation of dental pain. Patient was previously on Pen-Vee K. Will switch patient to clindamycin. Will send patient home with pain medications. Patient has dental appointment on Wednesday. Return parameters discussed. Disposition Clinical Impression: Pain, dental Disposition: HOME SELF-CARE Condition: Good Instructions: Dental Caries (ED), Toothache (ED) Additional Instructions: Please follow up with a dentist. If you do not have a dentist, you may contact [facility]. Phone number is [phone] for existing clients. For new clients you may call [phone]. Another option is you have is the [facility]. Phone number is [phone]. Medications as directed. [place] gargles. Cold fluids can sometimes help with pain as well. Return to the Emergency Room for any worsening or changing symptoms. Use cold compresses to the outside of the face. Prescriptions: HYDROcodone/APAP 5-325MG [[place] 5-325] 1 tab PO Q6HR PRN #12 tab PRN Reason: Pain Clindamycin [Cleocin] 300 mg PO Q6H 7 Days Referrals: Darleen Beyer MD [Primary Care Provider] - 1-2 days Time of Disposition: 02:48
[2017-06-28] MEDS ORDERED: HYDROcodone/APAP 5-325MG 1 EACH TAB PO STA (02:51)
== END 2017-06-28 03:06 | disposition home or self-care (01) ==
LOC: EC 02:08
DX: K08.89 Other specified disorders of teeth and supporting structures (principal); Z79.899 Other long term (current) drug therapy; F17.200 Nicotine dependence, unspecified, uncomplicated
CPT/HCPCS: 99282; 96372; J1885

== ENCOUNTER 2018-09-22 18:55 | Emergency (ER) | payer OTHER ==
[2018-09-22] MEDS ORDERED: SODIUM CHLORIDE 0.9% 1,000 ML IV STA (18:57)
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
[2018-09-22 19:16] LABS: Basophils % (A) 1 %; Eosinophils # (A) 0.1 k/uL (0-0.7); Eosinophils % (A) 2 %; HCT 34.6 % (39.0-53.0); HGB 11.5 gm/dL (13.0-17.5); Lymphocytes # (A) 3.5 k/uL (1.0-4.8); Lymphocytes % (A) 60 %; MCH 34.6 pg (25.0-35.0); MCHC 33.1 g/dL (31.0-37.0); MCV 104.5 fL (80.0-100.0); Macrocytosis Moderate; Mean Platelet Volume 7.5; Monocytes # (A) 0.1 k/uL (0-1.0); Monocytes % (A) 2 %; Neutrophils # (A) 1.9 k/uL (1.3-7.7); Neutrophils % (A) 33 %; Platelet Count 216 k/uL (150-450); RBC 3.31 m/uL (4.30-5.90); RDW 14.5 % (11.5-15.5); WBC 5.8 k/uL (3.8-10.6)
[2018-09-22 19:26] LABS: Albumin 2.6 g/dL (3.5-5.0); Calcium 6.6 mg/dL (8.4-10.2); Potassium 3.7 mmol/L (3.5-5.1); Total Bilirubin 0.3 mg/dL (0.2-1.3); Total Protein 4.5 g/dL (6.3-8.2)
[2018-09-22 19:28] LABS: Partial Thromboplastin Time 24.9 sec (22.0-30.0); Prothrombin Time 10.2 sec (9.0-12.0)
[2018-09-22 19:43] LABS: Creatine Kinase 186 U/L (55-170)
[2018-09-22 19:45] VITALS: RESP 18; TEMP 98.2
[2018-09-22 19:57] LABS: Creatine Kinase MB 1.3 ng/mL (0.0-2.4); Troponin I <0.012 ng/mL (0.000-0.034)
--- NOTE | 2018-09-22 19:58 | XR ---
EXAMINATION TYPE: XR chest 1V portable DATE OF EXAM: 09/22/2018 COMPARISON: NONE HISTORY: Chest pain TECHNIQUE: Single frontal view of the chest is obtained. FINDINGS: There is no heart failure nor confluent pneumonic infiltrate. Costophrenic angles are anam r. Bony thorax is intact. There are chest leads. IMPRESSION: No active cardiopulmonary disease.
--- NOTE | 2018-09-22 19:59 | XR ---
EXAMINATION TYPE: XR pelvis AP view DATE OF EXAM: 09/22/2018 COMPARISON: NONE HISTORY: Pain TECHNIQUE: Single view FINDINGS: Pelvic ring is intact. Proximal femurs and hip joints are intact. Sacroiliac joints appear normal. There are multiple small densities over the pelvis consistent with foreign bodies. IMPRESSION: Numerous rectangular foreign bodies over the pelvis. No fracture seen.
--- NOTE | 2018-09-22 20:00 | XR ---
EXAMINATION TYPE: XR forearm RT DATE OF EXAM: 09/22/2018 COMPARISON: NONE HISTORY: Arm pain TECHNIQUE: 2 views FINDINGS: There is comminuted impacted displaced fracture of the distal radius. This is 2 cm from the wrist joint. There is overriding of the fragments and 2.5 cm posterior displacement of the distal ra dius fragment. There is also ulnar styloid process fracture. The radiocarpal joint is probably anatomic. IMPRESSION: Displaced comminuted fractures of the distal radius and ulna.
[2018-09-22] MEDS ORDERED: MORPHINE SULFATE 4 MG/ML SYRINGE IVP STA (20:27)
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
[2018-09-22] MEDS ORDERED: ACETAMINOPHEN IV (For NPO) 1,000 MG in EMPTY BAG 1 BAG IVPB STA (21:01)
[2018-09-22] MEDS ORDERED: KETOROLAC 30 MG/ML 1 ML VIAL IVP STA (21:01)
[2018-09-22 22:10] LABS: Appearance,Urine Clear (Clear); Bilirubin,Urine Negative (Negative); Blood,Urine Moderate (Negative); Color,Urine Light Yellow; Glucose,Urine (UA) Negative (Negative); Ketones,Urine Negative (Negative); Leukocyte Esterase,Urine Negative (Negative); Nitrite,Urine Negative (Negative); PH, Urine 5.5 (5.0-8.0); Protein,Urine 1+ (Negative); RBC,Urine 1 /hpf (0-5); Specific Gravity,Urine 1.015 (1.001-1.035); Squamous Epithelial Cell,Urine <1 /hpf (0-4); Urobilinogen,Urine <2.0 mg/dL (<2.0); WBC,Urine 2 /hpf (0-5)
[2018-09-22 22:24] LABS: Amphetamine Screen,Urine Not Detected (NotDetected); Barbiturate Screen,Urine Not Detected (NotDetected); Benzodiazepines Screen,Urine Detected (NotDetected); Cocaine Screen,Urine Not Detected (NotDetected); Methadone Screen, Urine Not Detected (NotDetected); Opiate Screen,Urine Detected (NotDetected); Oxycodone Screen, Urine Not Detected (NotDetected); Phencyclidine Screen,Urine Not Detected (NotDetected); Tricyclic Antidepressant,Urine Not Detected (NotDetected); Urn Cannabinoid Scrn Detected (NotDetected)
--- NOTE | 2018-09-23 00:25 | XR ---
EXAMINATION TYPE: XR wrist complete RT DATE OF EXAM: 09/22/2018 COMPARISON: Today HISTORY: Postreduction. TECHNIQUE: 4 views FINDINGS: 4 views are obtained through the cast. There is comminuted distal transverse fracture of th e radius. There is comminuted fracture distal ulna. Major fragments are in reasonable position. There is no dislocation. Carpal bones appear intact. IMPRESSION: There is significant improved anatomic position of the fractures compared to initial exam .
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
[2018-09-23] MEDS ORDERED: LORazepam 2 MG/ML INJ IV STA (06:08)
[2018-09-23] MEDS ORDERED: LORazepam 2 MG/ML INJ IM STA (06:35)
[2018-09-23] MEDS ORDERED: chlordiazePOXIDE 25 MG CAP PO STA (07:21)
[2018-09-23 07:55] VITALS: BP 150/95; PULSE 89
== END 2018-09-23 08:36 | disposition home or self-care (01) ==
LOC: EC 18:55
DX: S52.531A Colles' fracture of right radius, initial encounter for closed fracture (principal); S42.022A Displaced fracture of shaft of left clavicle, initial encounter for closed fracture; F10.129 Alcohol abuse with intoxication, unspecified; I10 Essential (primary) hypertension; F17.200 Nicotine dependence, unspecified, uncomplicated; Z79.899 Other long term (current) drug therapy; V47.5XXA Car driver injured in collision with fixed or stationary object in traffic accident, initial encounter; Y92.410 Unspecified street and highway as the place of occurrence of the external cause; Z53.8 Procedure and treatment not carried out for other reasons
CPT/HCPCS: 36415; 86900; 86901; 80053; 82150; 82550; 82553; 83605; 83690; 84484; 85025; 85610; 85730; 86850; 81001; 80306; 80320; 72170; 73030; 73090; 73110; 71045; 72125; 70486; 70450; 71260; 74177; 99285; 25605; 96365; 96375 ×2; 96361; 96372; J2060; J2270; J1885; J0131; Q9967

== ENCOUNTER 2018-09-23 16:39 | Inpatient (IN) | payer OTHER ==
[2018-09-23] MEDS ORDERED: THIAMINE 100 MG/ML 2 ML VIAL IM STA (19:19)
[2018-09-23] MEDS ORDERED: DIAZEPAM 5 MG/ML 2 ML INJ IVP STA (19:30)
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
[2018-09-23] MEDS: LORazepam 2 MG/ML INJ IV PRN ×2 (19:40→23:09)
[2018-09-23 20:08] LABS: Basophils % (A) 0 %; Eosinophils # (A) 0.1 k/uL (0-0.7); Eosinophils % (A) 1 %; HCT 39.3 % (39.0-53.0); HGB 12.8 gm/dL (13.0-17.5); Lymphocytes # (A) 1.4 k/uL (1.0-4.8); Lymphocytes % (A) 16 %; MCH 34.1 pg (25.0-35.0); MCHC 32.7 g/dL (31.0-37.0); MCV 104.3 fL (80.0-100.0); Macrocytosis Moderate; Mean Platelet Volume 7.8; Monocytes # (A) 0.6 k/uL (0-1.0); Monocytes % (A) 8 %; Neutrophils # (A) 6.1 k/uL (1.3-7.7); Neutrophils % (A) 72 %; Platelet Count 205 k/uL (150-450); RBC 3.77 m/uL (4.30-5.90); RDW 14.4 % (11.5-15.5); WBC 8.4 k/uL (3.8-10.6)
[2018-09-23 20:10] LABS: Appearance,Urine Clear (Clear); Bacteria,Urine Rare /hpf; Bilirubin,Urine Negative (Negative); Blood,Urine Trace (Negative); Color,Urine Yellow; Glucose,Urine (UA) Negative (Negative); Ketones,Urine Negative (Negative); Leukocyte Esterase,Urine Negative (Negative); Mucus,Urine Rare /hpf; Nitrite,Urine Negative (Negative); Protein,Urine 2+ (Negative); RBC,Urine <1 /hpf (0-5); Specific Gravity,Urine 1.014 (1.001-1.035); Urobilinogen,Urine <2.0 mg/dL (<2.0); WBC,Urine 3 /hpf (0-5)
[2018-09-23 20:20] LABS: Amphetamine Screen,Urine Not Detected (NotDetected); Barbiturate Screen,Urine Not Detected (NotDetected); Benzodiazepines Screen,Urine Detected (NotDetected); Cocaine Screen,Urine Not Detected (NotDetected); Methadone Screen, Urine Not Detected (NotDetected); Opiate Screen,Urine Detected (NotDetected); Oxycodone Screen, Urine Not Detected (NotDetected); Phencyclidine Screen,Urine Not Detected (NotDetected); Tricyclic Antidepressant,Urine Not Detected (NotDetected); Urn Cannabinoid Scrn Not Detected (NotDetected)
--- NOTE | 2018-09-23 20:23 | XR ---
EXAMINATION TYPE: XR foot complete LT DATE OF EXAM: 09/23/2018 COMPARISON: NONE HISTORY: Pain TECHNIQUE: 3 views FINDINGS: Metatarsals appear intact. I see no fracture nor dislocation. Joint spaces are normal. Ther e is slight deformity of the proximal phalanx of the little toe consistent with old healed fracture. IMPRESSION: No acute abnormality of the left foot.
[2018-09-23 20:29] LABS: Albumin 3.5 g/dL (3.5-5.0); Calcium 9.1 mg/dL (8.4-10.2); Magnesium 1.5 mg/dL (1.6-2.3); Potassium 4.4 mmol/L (3.5-5.1); Total Bilirubin 0.9 mg/dL (0.2-1.3); Total Protein 5.9 g/dL (6.3-8.2)
[2018-09-23] MEDS ORDERED: HYDROcodone/APAP 5-325MG 1 EACH TAB PO STA (21:08)
[2018-09-23] MEDS ORDERED: NALOXONE 0.4 MG/ML 1 ML VIAL IV PRN (21:23)
[2018-09-24] MEDS: HYDROcodone/APAP 5-325MG 1 EACH TAB PO PRN ×2 (00:06→05:13)
[2018-09-24] MEDS: LORazepam 2 MG/ML INJ IV PRN ×5 (04:13→23:23)
[2018-09-24 05:45] LABS: Basophils % (A) 1 %; Eosinophils # (A) 0.3 k/uL (0-0.7); Eosinophils % (A) 4 %; HCT 36.2 % (39.0-53.0); HGB 12.1 gm/dL (13.0-17.5); Lymphocytes # (A) 1.9 k/uL (1.0-4.8); Lymphocytes % (A) 26 %; MCH 35.1 pg (25.0-35.0); MCHC 33.4 g/dL (31.0-37.0); MCV 104.9 fL (80.0-100.0); Macrocytosis Moderate; Mean Platelet Volume 7.7; Monocytes # (A) 0.6 k/uL (0-1.0); Monocytes % (A) 9 %; Neutrophils # (A) 4.3 k/uL (1.3-7.7); Neutrophils % (A) 59 %; Platelet Count 213 k/uL (150-450); RBC 3.45 m/uL (4.30-5.90); RDW 14.7 % (11.5-15.5); WBC 7.2 k/uL (3.8-10.6)
[2018-09-24 05:54] LABS: Anion Gap 3 mmol/L; Blood Urea Nitrogen 15 mg/dL (9-20); Calcium 8.8 mg/dL (8.4-10.2); Carbon Dioxide 28 mmol/L (22-30); Chloride 107 mmol/L (98-107); Glucose 134 mg/dL (74-99); Magnesium 1.7 mg/dL (1.6-2.3); Phosphorus 2.8 mg/dL (2.5-4.5); Potassium 4.2 mmol/L (3.5-5.1); Sodium 138 mmol/L (137-145)
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
[2018-09-24] MEDS: SODIUM CHLORIDE 0.9% 1,000 ML IV SCH ×4 (07:01→22:26)
[2018-09-24] MEDS ORDERED: LORazepam 2 MG/ML INJ IV STA (09:35)
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
[2018-09-24] MEDS: HYDROcodone/APAP 10-325MG 1 EACH TAB PO PRN (09:54)
[2018-09-24] MEDS: HEPARIN SODIUM,PORCINE 5,000 UNIT/ML 1 ML VIAL SQ SCH ×3 (09:55→22:21)
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
--- NOTE | 2018-09-24 11:29 | XR ---
EXAMINATION TYPE: XR clavicle LT , 2 VIEWS DATE OF EXAM ORDERED: 09/24/2018 HISTORY: F/U clavicle fx. COMPARISON: Previous shoulder study dated 09/22/2018. FINDINGS: There is a cortical irregularity on the 15 degree down angle view of the clavicle. This in association with previous views of the shoulder are highly suspicious for a nondisplaced clavicular fracture. The coracoclavicular distance is normal. IMPRESSION: , HIGHLY SUSPICIOUS THAT THERE IS AN UNDISPLACED FRACTURE OF THE JUNCTION OF THE MIDDLE AND DISTAL ON E THIRD OF THE CLAVICLE.
[2018-09-24] MEDS: METOPROLOL TARTRATE 50 MG TAB PO SCH ×2 (12:08→21:14)
[2018-09-24] MEDS: NICOTINE 14MG/24HR PATCH TRANSDERM SCH (12:09)
[2018-09-24 12:22] VITALS: BMI 21.8
[2018-09-24] MEDS: MULTIVITAMINS, THERA 1 EACH TAB PO SCH (13:21)
[2018-09-24] MEDS: THIAMINE 100 MG TAB PO SCH ×2 (13:21→18:39)
[2018-09-24] MEDS: MORPHINE ORAL SOLN 10 MG/5 ML CUP PO PRN ×2 (18:31→22:21)
[2018-09-24] MEDS: chlordiazePOXIDE 25 MG CAP PO SCH ×2 (18:31→21:14)
[2018-09-25] MEDS: HYDROcodone/APAP 10-325MG 1 EACH TAB PO PRN ×3 (01:34→17:33)
[2018-09-25] MEDS: LORazepam 2 MG/ML INJ IV PRN ×4 (03:29→22:10)
[2018-09-25] MEDS: MORPHINE ORAL SOLN 10 MG/5 ML CUP PO PRN ×4 (03:29→20:49)
[2018-09-25] MEDS: SODIUM CHLORIDE 0.9% 1,000 ML IV SCH ×2 (05:10→20:48)
[2018-09-25] MEDS ORDERED: chlordiazePOXIDE 25 MG CAP PO SCH (05:29)
[2018-09-25 06:41] LABS: ALT 73 U/L (21-72); AST 108 U/L (17-59); Albumin 2.6 g/dL (3.5-5.0); Alkaline Phosphatase 154 U/L (38-126); Anion Gap 0 mmol/L; Blood Urea Nitrogen 15 mg/dL (9-20); Calcium 8.7 mg/dL (8.4-10.2); Carbon Dioxide 26 mmol/L (22-30); Chloride 109 mmol/L (98-107); Glucose 107 mg/dL (74-99); Potassium 4.1 mmol/L (3.5-5.1); Sodium 135 mmol/L (137-145); Total Bilirubin 0.6 mg/dL (0.2-1.3); Total Protein 4.7 g/dL (6.3-8.2)
[2018-09-25] MEDS: HEPARIN SODIUM,PORCINE 5,000 UNIT/ML 1 ML VIAL SQ SCH ×3 (08:20→23:42)
[2018-09-25] MEDS: NICOTINE 14MG/24HR PATCH TRANSDERM SCH (08:21)
[2018-09-25] MEDS: METOPROLOL TARTRATE 50 MG TAB PO SCH ×2 (08:21→20:49)
[2018-09-25] MEDS: chlordiazePOXIDE 25 MG CAP PO SCH ×3 (08:21→23:43)
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
[2018-09-25] MEDS: THIAMINE 100 MG TAB PO SCH ×2 (12:44→16:33)
[2018-09-25] MEDS: MULTIVITAMINS, THERA 1 EACH TAB PO SCH (12:44)
[2018-09-26] MEDS: MORPHINE ORAL SOLN 10 MG/5 ML CUP PO PRN ×3 (01:21→13:01)
[2018-09-26] MEDS: HYDROcodone/APAP 10-325MG 1 EACH TAB PO PRN (04:22)
[2018-09-26] MEDS: LORazepam 2 MG/ML INJ IV PRN ×2 (05:44→12:28)
[2018-09-26] MEDS: NICOTINE 14MG/24HR PATCH TRANSDERM SCH (06:51)
[2018-09-26 08:03] VITALS: RESP 18; TEMP 98.3
[2018-09-26] MEDS: HEPARIN SODIUM,PORCINE 5,000 UNIT/ML 1 ML VIAL SQ SCH (08:04)
[2018-09-26] MEDS: METOPROLOL TARTRATE 50 MG TAB PO SCH (08:04)
[2018-09-26] MEDS: chlordiazePOXIDE 25 MG CAP PO SCH ×2 (08:09→15:32)
[2018-09-26 08:45] LABS: Albumin 2.9 g/dL (3.5-5.0); Calcium 9.5 mg/dL (8.4-10.2); Potassium 5.3 mmol/L (3.5-5.1); Total Bilirubin 0.6 mg/dL (0.2-1.3); Total Protein 5.3 g/dL (6.3-8.2)
[2018-09-26] MEDS: HYDROcodone/APAP 5-325MG 1 EACH TAB PO PRN (10:29)
[2018-09-26 12:20] VITALS: BP 124/79; PULSE 72
[2018-09-26] MEDS: MULTIVITAMINS, THERA 1 EACH TAB PO SCH (12:27)
[2018-09-26] MEDS: THIAMINE 100 MG TAB PO SCH (12:27)
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
== END 2018-09-26 17:00 | disposition home or self-care (01) | DRG 896 ==
LOC: EC 16:39 → 2SICU 21:37 → 3SCARD 09-24 14:47
PROVIDERS: ADMIT Internal Medicine; ATTEND Internal Medicine
DX: F10.231 Alcohol dependence with withdrawal delirium (principal); N17.0 Acute kidney failure with tubular necrosis; S52.531A Colles' fracture of right radius, initial encounter for closed fracture; S52.201A Unspecified fracture of shaft of right ulna, initial encounter for closed fracture; K86.1 Other chronic pancreatitis; E83.42 Hypomagnesemia; E86.0 Dehydration; F17.200 Nicotine dependence, unspecified, uncomplicated; I10 Essential (primary) hypertension; K70.10 Alcoholic hepatitis without ascites; K74.60 Unspecified cirrhosis of liver; S42.026A Nondisplaced fracture of shaft of unspecified clavicle, initial encounter for closed fracture; V89.2XXA Person injured in unspecified motor-vehicle accident, traffic, initial encounter; Y92.410 Unspecified street and highway as the place of occurrence of the external cause; Z79.899 Other long term (current) drug therapy; Z82.49 Family history of ischemic heart disease and other diseases of the circulatory system
CPT/HCPCS: 36415; 80048; 80053; 80306; 81001; 83690; 83735; 84100; 85025; 96372; 96374; 96375; 96376; 99285

== ENCOUNTER 2020-04-19 00:18 | Inpatient (IN) | payer OTHER ==
[2020-04-19] MEDS ORDERED: SODIUM CHLORIDE 0.9% 1,000 ML IV STA (00:37)
[2020-04-19] MEDS ORDERED: ALBUTEROL NEBULIZED 2.5 MG/3 ML INHALATION STA (00:37)
[2020-04-19] MEDS ORDERED: methylPREDNISolone SOD SUCCI 125 MG/2 ML VIAL IV STA (00:37)
[2020-04-19] MEDS ORDERED: IPRATROPIUM-ALBUTEROL 3 ML NEB INHALATION STA (00:37)
[2020-04-19] MEDS ORDERED: PIPERACILLIN-TAZOBACTAM 3.375 GM in SODIUM CHLORIDE 0.9% 100 ML IVPB STA (00:37)
--- NOTE | 2020-04-19 00:44 | ED ---
General Adult HPI - General Stated complaint: Cough Time Seen by Provider: 04/19/20 00:21 Source: patient, EMS, RN notes reviewed, old records reviewed - History of Present Illness Initial comments: 44-year-old male history COPD, alcoholism presenting for evaluation of cough dyspnea and alcohol intoxication. Patient states that for approximately one week he's had increased productive cough and difficulty breathing. He denies central chest pain. He denies lower extremity pain or swelling. He is a current smoker. And he admits to heavy drinking today. Denies fever. - Related Data Previous Rx's Medication Instructions Recorded HYDROcodone/APAP 10-325MG [[place] 1 each PO Q6H PRN #40 tab 09/26/18 10-325] Metoprolol Tartrate [Lopressor] 50 mg PO BID #60 tab 09/26/18 chlordiazePOXIDE HCl [Librium] 10 mg PO TID 6 Days #22 capsule 09/26/18 Allergies Allergy/AdvReac Type Severity Reaction Status Date / Time No Known Allergies Allergy Verified 09/23/18 19:56 Review of Systems ROS Statement: Those systems with pertinent positive or pertinent negative responses have been documented in the HPI. ROS Other: All systems not noted in ROS Statement are negative. Past Medical History Past Medical History: Hypertension, Liver Disease, Renal Disease Additional Past Medical History / Comment(s): pancreatitis, ETOh History of Any Multi-Drug Resistant Organisms: None Reported Past Surgical History: No Surgical Hx Reported Additional Past Surgical History / Comment(s): Bronchoscopy, lymph node removed Past Anesthesia/Blood Transfusion Reactions: No Reported Reaction Past Alcohol Use History: Daily, Heavy - Past Family History Mother Family Medical History: Hypertension Additional Family Medical History / Comment(s): Mother is alive at age 62 with history of hypertension. Father Additional Family Medical History / Comment(s): Father at age 36 from over dose of methadone and benzodiazepines with aspiration. Brother(s) Additional Family Medical History / Comment(s): Patient has 2 brothers with no major medical problems. Patient does not have any sisters. Patient does not have any children. General Exam General appearance: alert, in no apparent distress Head exam: Present: atraumatic, normocephalic Eye exam: Present: normal appearance, PERRL ENT exam: Present: mucous membranes dry Neck exam: Present: normal inspection. Absent: tenderness, meningismus Respiratory exam: Present: respiratory distress, wheezes, rhonchi (Left lower lung field) Cardiovascular Exam: Present: regular rate, normal rhythm GI/Abdominal exam: Present: soft. Absent: distended, tenderness, guarding Extremities exam: Present: normal inspection, normal capillary refill. Absent: pedal edema Neurological exam: Present: alert, oriented X3, CN II-XII intact. Absent: motor sensory deficit Psychiatric exam: Present: normal affect, normal mood Skin exam: Present: warm, dry, intact Course Vital Signs 04/19/20 04/19/20 04/19/20 00:40 01:11 01:27 Temperature 98.9 F Pulse Rate 100 100 100 Respiratory 18 Rate Blood Pressure 122/81 O2 Sat by Pulse 100 Oximetry 04/19/20 01:56 Temperature Pulse Rate 100 Respiratory 18 Rate Blood Pressure 118/75 O2 Sat by Pulse 95 Oximetry EKG Findings - EKG Comments: EKG Findings:: EKG: Sinus tachycardia, rate of 107, IN interval 186, QRS duration 84, QTC 435, no ST segment elevation. Medical Decision Making - Medical Decision Making 44 yo male presenting with dyspnea cough, alcohol intoxication. Serum alcohol is 353 significantly elevated. He has a normal CBC, CMP showing normal electrolytes. He has a lactic acid of 3.8 which is suspect is predominantly from dehydration secondary to alcohol abuse. He has an elevated d-dimer. He has a chest x-ray which is negative for focal pneumonia. CT angiography negative for PE showing emphysema. He started on antibiotics as well as treatment for COPD exacerbation. He's admitted to Dr. Montana who has accepted admission. - Lab Data Result diagrams: 04/19/20 01:20 04/19/20 01:20 Lab Results 04/19/20 04/19/20 04/19/20 Range/Units 01:20 01:20 01:20 WBC 7.9 (3.8-10.6) k/uL RBC 4.92 (4.30-5.90) m/uL Hgb 15.9 (13.0-17.5) gm/dL Hct 49.4 (39.0-53.0) % MCV 100.3 H (80.0-100.0) fL MCH 32.4 (25.0-35.0) pg MCHC 32.3 (31.0-37.0) g/dL RDW 14.6 (11.5-15.5) % Plt Count 183 (150-450) k/uL Neutrophils % 50 % Lymphocytes % 34 % Monocytes % 7 % Eosinophils % 6 % Basophils % 1 % Neutrophils # 4.0 (1.3-7.7) k/uL Lymphocytes # 2.7 (1.0-4.8) k/uL Monocytes # 0.5 (0-1.0) k/uL Eosinophils # 0.5 (0-0.7) k/uL Basophils # 0.0 (0-0.2) k/uL Macrocytosis Slight PT 9.5 (9.0-12.0) sec INR 0.9 (<1.2) APTT 23.2 (22.0-30.0) sec D-Dimer 0.84 H (<0.60) mg/L FEU Sodium 141 (137-145) mmol/L Potassium 4.4 (3.5-5.1) mmol/L Chloride 107 (98-107) mmol/L Carbon Dioxide 23 (22-30) mmol/L Anion Gap 11 mmol/L BUN 7 L (9-20) mg/dL Creatinine 1.21 (0.66-1.25) mg/dL Est GFR (CKD-EPI)AfAm 84 (>60 ml/min/1.73 sqM) Est GFR (CKD-EPI)NonAf 73 (>60 ml/min/1.73 sqM) Glucose 158 H (74-99) mg/dL Plasma Lactic Acid Lisandro (0.7-2.0) mmol/L Calcium 8.5 (8.4-10.2) mg/dL Magnesium 1.8 (1.6-2.3) mg/dL Total Bilirubin 0.3 (0.2-1.3) mg/dL AST 33 (17-59) U/L ALT 15 (4-49) U/L Alkaline Phosphatase 132 H (38-126) U/L Total Protein 6.1 L (6.3-8.2) g/dL Albumin 3.5 (3.5-5.0) g/dL Serum Alcohol 353 H* mg/dL 04/19/20 Range/Units 01:20 WBC (3.8-10.6) k/uL RBC (4.30-5.90) m/uL Hgb (13.0-17.5) gm/dL Hct (39.0-53.0) % MCV (80.0-100.0) fL MCH (25.0-35.0) pg MCHC (31.0-37.0) g/dL RDW (11.5-15.5) % Plt Count (150-450) k/uL Neutrophils % % Lymphocytes % % Monocytes % % Eosinophils % % Basophils % % Neutrophils # (1.3-7.7) k/uL Lymphocytes # (1.0-4.8) k/uL Monocytes # (0-1.0) k/uL Eosinophils # (0-0.7) k/uL Basophils # (0-0.2) k/uL Macrocytosis PT (9.0-12.0) sec INR (<1.2) APTT (22.0-30.0) sec D-Dimer (<0.60) mg/L FEU Sodium (137-145) mmol/L Potassium (3.5-5.1) mmol/L Chloride (98-107) mmol/L Carbon Dioxide (22-30) mmol/L Anion Gap mmol/L BUN (9-20) mg/dL Creatinine (0.66-1.25) mg/dL Est GFR (CKD-EPI)AfAm (>60 ml/min/1.73 sqM) Est GFR (CKD-EPI)NonAf (>60 ml/min/1.73 sqM) Glucose (74-99) mg/dL Plasma Lactic Acid Lisandro 3.8 H* (0.7-2.0) mmol/L Calcium (8.4-10.2) mg/dL Magnesium (1.6-2.3) mg/dL Total Bilirubin (0.2-1.3) mg/dL AST (17-59) U/L ALT (4-49) U/L Alkaline Phosphatase (38-126) U/L Total Protein (6.3-8.2) g/dL Albumin (3.5-5.0) g/dL Serum Alcohol mg/dL Critical Care Time Critical Care Time: Yes Total Critical Care Time: 35 Disposition Clinical Impression: Alcohol abuse, Alcohol intoxication, COPD exacerbation Disposition: ADMITTED IP TO THIS [facility] Condition: Stable Is patient prescribed a controlled substance at d/c from ED?: No Referrals: Nonstaff,Physician [REFERRING] - 1-2 days Decision to Admit Reason: Admit from EC Decision Date: 04/19/20 Decision Time: 02:41
--- NOTE | 2020-04-19 00:56 | XR ---
EXAMINATION TYPE: XR chest 1V portable DATE OF EXAM: 04/19/2020 COMPARISON: 09/22/2018 HISTORY: Chest pain TECHNIQUE: FINDINGS: Heart and mediastinum are normal. Lungs are clear. Diaphragm is normal. Bony thorax appears normal. There is no pneumothorax. IMPRESSION: Normal chest. No change.
[2020-04-19 01:34] LABS: Basophils % (A) 1 %; Eosinophils # (A) 0.5 k/uL (0-0.7); Eosinophils % (A) 6 %; HCT 49.4 % (39.0-53.0); HGB 15.9 gm/dL (13.0-17.5); Lymphocytes # (A) 2.7 k/uL (1.0-4.8); Lymphocytes % (A) 34 %; MCH 32.4 pg (25.0-35.0); MCHC 32.3 g/dL (31.0-37.0); MCV 100.3 fL (80.0-100.0); Macrocytosis Slight; Mean Platelet Volume 8.4; Monocytes # (A) 0.5 k/uL (0-1.0); Monocytes % (A) 7 %; Neutrophils % (A) 50 %; Platelet Count 183 k/uL (150-450); RBC 4.92 m/uL (4.30-5.90); RDW 14.6 % (11.5-15.5); WBC 7.9 k/uL (3.8-10.6)
[2020-04-19] MEDS ORDERED: LORazepam 2 MG/ML INJ IV STA (01:45)
[2020-04-19 01:50] LABS: Albumin 3.5 g/dL (3.5-5.0); Calcium 8.5 mg/dL (8.4-10.2); INR 0.9 (<1.2); Magnesium 1.8 mg/dL (1.6-2.3); Partial Thromboplastin Time 23.2 sec (22.0-30.0); Potassium 4.4 mmol/L (3.5-5.1); Prothrombin Time 9.5 sec (9.0-12.0); Total Bilirubin 0.3 mg/dL (0.2-1.3); Total Protein 6.1 g/dL (6.3-8.2)
[2020-04-19 01:54] LABS: D-Dimer 0.84 mg/L FEU (<0.60)
[2020-04-19] MEDS ORDERED: SODIUM CHLORIDE 0.9% 1,000 ML IV ONE ×2 (02:09→14:42)
--- NOTE | 2020-04-19 02:30 | CT ---
EXAMINATION TYPE: CT angio chest DATE OF EXAM: 04/19/2020 COMPARISON: None HISTORY: elevated d-dimer CT DLP: 340.1 mGycm Automated exposure control for dose reduction was used. CONTRAST: Performed with IV Contrast, patient injected with 65mL mL of Isovue 370. There are 3-D post processed images. FINDINGS: There is diffuse bullous emphysema in the upper lung cheung at the lung apices. There is no pulmonary mass. There is no pleural effusion. Heart size is normal. There is no pericardial effusion. There are no hilar masses. There are a few enlarged right bronchial lymph nodes that measure up to 1 cm. There is no mediastinal adenopathy. Thoracic aorta is intact. There is no aneurysm or dissection. There is normal contrast opacification of the pulmonary arteries. There are no filling defects. The bony thorax is intact. There is no thoracic compression fracture. IMPRESSION: No evidence of pulmonary embolism. Pulmonary emphysema. Nonspecific right bronchial lymph nodes.
[2020-04-19] MEDS ORDERED: IPRATROPIUM-ALBUTEROL 3 ML NEB INHALATION PRN (02:37)
[2020-04-19] MEDS ORDERED: THIAMINE 100 MG/ML 2 ML VIAL IM STA (02:37)
[2020-04-19] MEDS ORDERED: LORazepam 2 MG/ML INJ IV PRN ×2 (02:37)
[2020-04-19] MEDS: SODIUM CHLORIDE 0.9% 1,000 ML IV SCH ×3 (03:22→18:21)
[2020-04-19] MEDS: methylPREDNISolone SOD SUCCI 125 MG/2 ML VIAL IV SCH ×3 (05:59→18:20)
[2020-04-19] MEDS: LORazepam 2 MG/ML INJ IV PRN ×7 (05:59→22:59)
[2020-04-19] MEDS ORDERED: AZITHROMYCIN 500 MG TAB PO SCH (09:00)
[2020-04-19] MEDS ORDERED: AMOXIC-POT CLAV 875-125MG 1 EACH TAB PO SCH (09:00)
[2020-04-19] MEDS: IPRATROPIUM-ALBUTEROL 3 ML NEB INHALATION SCH ×4 (09:05→20:37)
[2020-04-19] MEDS: METOPROLOL TARTRATE 50 MG TAB PO SCH (14:56)
[2020-04-19] MEDS: ONDANSETRON 4 MG/2 ML VIAL IVP PRN (14:56)
[2020-04-19] MEDS: NICOTINE 21MG/24HR PATCH TRANSDERM SCH (14:56)
[2020-04-19] MEDS: QUEtiapine 100 MG TAB PO SCH (16:01)
--- NOTE | 2020-04-19 17:01 | HP ---
HISTORY AND PHYSICAL CHIEF COMPLAINT: Cough, shortness of breath and alcohol intoxication. HISTORY OF PRESENT ILLNESS: This is the first known admission for this 44-year-old white male, chronic alcoholic who is a heavy smoker. He came to the emergency room with a very congested and productive cough with shortness of breath. Chest x-ray failed to demonstrate a definite infiltrate, it was felt that he clinically had pneumonia and bronchitis. His blood alcohol was also extremely high. In the emergency room, his laboratory studies revealed a normal white count and hemoglobin. Alkaline phosphatase was slightly elevated, but AST and ALT were normal. REVIEW OF SYSTEMS: He denied any blackouts, difficulty with vision or hearing, chest pain, hemoptysis, hypertension, heart disease, murmurs, rheumatic fever, abdominal pain, hematemesis, melena, hematochezia, jaundice, renal failure, hematuria, frequency, urgency and dysuria, diabetes, etc. Past medical history, family history, and personal and social histories reveal that he is not allergic to any medication. He is not clear regarding the medications that he is on, but mentions metoprolol, Advair, Requip, and Seroquel. He smokes about 2 packs a day. Surgically, he has had a procedure on the right wrist and forearm. 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 PHYSICAL EXAMINATION: Blood pressure is 98.9 with a pulse of 100, respirations of 18 and an O2 of 100%. Blood pressure is 122/81. In general, he appeared to be slightly agitated and short of breath. He had a persistent productive cough. The skin was tanned basically on the head and neck. Pupils are equal, round and reactive and extraocular movements were intact. Ears, nose, mouth, and throat were normal. Neck veins are not distended. Chest demonstrated bilateral wheezing, rales and rhonchi with a very productive cough. Cardiac exam demonstrated sinus tachycardia. Abdomen is soft, nontender without visceromegaly masses. Bowel sounds are present and extremities normal. Neurologically, he is intact. He is admitted to the hospital with diagnoses: 1. Purulent bronchitis. 2. Bilateral bronchopneumonia. 3. Acute alcohol intoxication. 4. Alcoholism. 5. Chronic obstructive pulmonary disease. PLAN: 1. Bed rest. 2. IV fluids. 3. IV antibiotics. 4. Updrafts. 5. Watch for DTs. MMODL / IJN: [id number] /
[2020-04-19] MEDS: PANTOPRAZOLE 40 MG TABLET PO SCH (18:18)
[2020-04-19] MEDS: THIAMINE 100 MG TAB PO SCH (18:19)
[2020-04-19] MEDS: AMPICILLIN-SULBACTAM 3 GM in SODIUM CHLORIDE 0.9% 100 ML IVPB SCH (19:36)
[2020-04-19 20:53] LABS: Appearance,Urine Clear (Clear); Bilirubin,Urine Negative (Negative); Blood,Urine Trace (Negative); Color,Urine Yellow; Glucose,Urine (UA) 3+ (Negative); Ketones,Urine Trace (Negative); Leukocyte Esterase,Urine Negative (Negative); Mucus,Urine Rare /hpf; Nitrite,Urine Negative (Negative); Protein,Urine 3+ (Negative); RBC,Urine 1 /hpf (0-5); Specific Gravity,Urine 1.029 (1.001-1.035); Squamous Epithelial Cell,Urine <1 /hpf (0-4); Urobilinogen,Urine <2.0 mg/dL (<2.0); WBC,Urine 1 /hpf (0-5)
[2020-04-20] MEDS: AMPICILLIN-SULBACTAM 3 GM in SODIUM CHLORIDE 0.9% 100 ML IVPB SCH ×4 (00:25→18:03)
[2020-04-20] MEDS: SODIUM CHLORIDE 0.9% 1,000 ML IV SCH ×7 (00:29→23:10)
[2020-04-20] MEDS: methylPREDNISolone SOD SUCCI 125 MG/2 ML VIAL IV SCH ×5 (00:29→23:30)
[2020-04-20 06:11] LABS: Basophils % (A) 0 %; Eosinophils # (A) 0.1 k/uL (0-0.7); Eosinophils % (A) 1 %; HCT 44.6 % (39.0-53.0); HGB 14.3 gm/dL (13.0-17.5); Lymphocytes # (A) 0.8 k/uL (1.0-4.8); Lymphocytes % (A) 7 %; MCH 32.6 pg (25.0-35.0); MCV 101.6 fL (80.0-100.0); Macrocytosis Slight; Mean Platelet Volume 8.3; Monocytes # (A) 0.2 k/uL (0-1.0); Monocytes % (A) 2 %; Neutrophils # (A) 10.3 k/uL (1.3-7.7); Neutrophils % (A) 90 %; Platelet Count 179 k/uL (150-450); RBC 4.39 m/uL (4.30-5.90); RDW 14.3 % (11.5-15.5); WBC 11.4 k/uL (3.8-10.6)
[2020-04-20 06:19] LABS: AST 21 U/L (17-59); African American GFR (CKD) >90 (>60 ml/min/1.73 sqM); Albumin 2.8 g/dL (3.5-5.0); Alkaline Phosphatase 115 U/L (38-126); Anion Gap 4 mmol/L; Blood Urea Nitrogen 14 mg/dL (9-20); C Reactive Protein 5.1 mg/L (<10.0); Calcium 8.4 mg/dL (8.4-10.2); Carbon Dioxide 24 mmol/L (22-30); Chloride 105 mmol/L (98-107); Glucose 171 mg/dL (74-99); Non-African American GFR(CKD) 88 (>60 ml/min/1.73 sqM); Potassium 4.5 mmol/L (3.5-5.1); Sodium 133 mmol/L (137-145); Total Bilirubin 0.5 mg/dL (0.2-1.3); Total Protein 5.2 g/dL (6.3-8.2)
[2020-04-20 06:33] LABS: ALT 18 U/L (4-49)
[2020-04-20] MEDS: IPRATROPIUM-ALBUTEROL 3 ML NEB INHALATION SCH ×4 (07:41→19:35)
[2020-04-20] MEDS: THIAMINE 100 MG TAB PO SCH ×2 (07:59→18:03)
[2020-04-20] MEDS: METOPROLOL TARTRATE 50 MG TAB PO SCH ×2 (07:59→20:34)
[2020-04-20] MEDS: PANTOPRAZOLE 40 MG TABLET PO SCH (07:59)
[2020-04-20] MEDS: NICOTINE 21MG/24HR PATCH TRANSDERM SCH (08:00)
--- NOTE | 2020-04-20 08:37 | CONS ---
CONSULTATION DATE OF SERVICE: 04/19/2020 REASON FOR CONSULTATION: Possible sepsis with elevated lactic acid. HISTORY OF PRESENT ILLNESS: The patient is a 44-year-old male with past medical history significant for COPD, alcoholism, presenting to the ER at [facility] early this morning with chief complaints of cough and dyspnea and alcohol intoxication. The patient complaining of not feeling well for about a week. His main symptom has been cough which has been moderate intensity and bringing up some yellowish to greenish sputum. No hemoptysis. The patient denies having any pleuritic chest pain. No significant URI symptoms. No nausea, no vomiting. No abdominal pain. No diarrhea. The patient has been admitted to drinking heavily and is currently a smoker as well and does complain of some generalized body aches. 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 With these symptoms, the patient was evaluated by the ER physician. On arrival to the ER, the patient has been afebrile and no fever according to her throughout the day. The patient did have mild tachycardia and the patient did not have hypoxemia on presentation to the hospital. The patient did have a normal white count and no left shift. D-dimer was mildly elevated at 0.84. Urine has been negative. Serum alcohol was 353, vazquez PCR was negative. The patient lactic acid 3.8, did come down to 2.0. Subsequently, the lactic acid has been up to 5.1. The patient has received fluid boluses and a dose of Zosyn in the ER. Subsequently the patient has been admitted to the hospital for further workup. The patient did have chest x-ray that was negative. CT angiogram was negative for PE and did not show any evidence of consolidation or pneumonia and a nonspecific right bronchial lymph node. Infectious Disease was consulted with concern for possible sepsis. REVIEW OF SYSTEMS: Positive points have been mentioned in HPI. Rest of the systems are negative. PAST MEDICAL HISTORY: Hypertension, history of pancreatitis, alcohol abuse. PAST SURGICAL HISTORY: Past surgical history of bronchoscopy and lymph node removal. SOCIAL HISTORY: Positive for heavy drinking and smoking. FAMILY HISTORY: Mother with history of hypertension. Father at the age of 36, overdose of methadone. ALLERGIES: No known drug allergies. MEDICATIONS: Currently include the patient is on DuoNeb, Unasyn 3 grams q.6 hours, Ativan, Solu- Medrol Lopressor, nicotine patch, Zofran, Protonix, Seroquel, Requip, thiamine. PHYSICAL EXAMINATION: Blood pressure is 147/90 with a pulse of 160, temperature 98.6. He is 96% on 2 L nasal cannula. General description is a young middle-aged male lying in bed in no distress. No tachypnea or accessory muscles of respiration use. HEENT examination shows no pallor, no scleral icterus. Oral mucosa membrane is dry. No pharyngeal erythema or thrush. NECK: Trachea central. No thyromegaly. LUNGS: Unlabored breathing to auscultation anteriorly. No wheeze or crackles. HEART S1, S2. Regular rate and rhythm. ABDOMEN: Soft. No tenderness. No guarding. No rigidity. No organomegaly. EXTREMITIES: No edema of the feet. SKIN examination: No rashes or mass palpable. NEUROLOGICAL: Patient is awake, alert, oriented times three. Mood and affect normal. LABS: Hemoglobin 15.8, white count 7.9, BUN of 7, creatinine 1.21. Urine has been negative. Serum alcohol level elevated. Chest x-ray report mentioned above. DIAGNOSTIC IMPRESSION AND PLAN: Patient admitted to the hospital with cough, sputum production, in this patient did have a history of smoking as well as drinking heavily, likely representing COPD exacerbation with tracheobronchitis with elevated lactic acid, more likely related to his underlying COPD and bronchospasm. Clinically not behaving as sepsis in this patient currently with no fever or elevated white count. The patient does not look toxic. PLAN: 1. We will try to obtain sputum for Gram stain and culture. 2. We will repeat his CBC, BMP and CRP. 3. Continue with empiric Unasyn 3 grams q.6 hours for the culture to finalize. 4. We will follow on clinical condition and culture to further adjust medication if needed. Thank you for this consultation. We will follow this patient along with you. MMODL / IJN: [id number] /
[2020-04-20] MEDS: LORazepam 2 MG/ML INJ IV PRN ×5 (08:38→20:40)
--- NOTE | 2020-04-20 13:16 | PN ---
PROGRESS NOTE CHIEF COMPLAINT: Pneumonitis. HISTORY OF PRESENT ILLNESS: This gentleman is quite agitated today and is in DTs. His vital signs are normal. PHYSICAL EXAMINATION: He still has tachycardia. Chest is clear. Abdomen is soft and nontender. He does have some periorbital edema. IMPRESSION: 1. Bronchial pneumonia. 2. Alcoholism. 3. Delirium tremens. PLAN: Repeat laboratory studies and continue with IV fluids and antibiotics. MMODL / IJN: [id number] /
[2020-04-20 13:38] LABS: Basophils % (A) 0 %; Eosinophils # (A) 0.3 k/uL (0-0.7); Eosinophils % (A) 1 %; HCT 47.9 % (39.0-53.0); HGB 15.2 gm/dL (13.0-17.5); Lymphocytes # (A) 0.6 k/uL (1.0-4.8); Lymphocytes % (A) 2 %; MCH 31.4 pg (25.0-35.0); MCHC 31.8 g/dL (31.0-37.0); Mean Platelet Volume 8.3; Monocytes # (A) 0.4 k/uL (0-1.0); Monocytes % (A) 2 %; Neutrophils # (A) 24.4 k/uL (1.3-7.7); Neutrophils % (A) 95 %; Platelet Count 205 k/uL (150-450); RBC 4.83 m/uL (4.30-5.90); RDW 13.9 % (11.5-15.5); WBC 25.7 k/uL (3.8-10.6)
[2020-04-20 13:46] LABS: ALT 14 U/L (4-49); AST 22 U/L (17-59); African American GFR (CKD) >90 (>60 ml/min/1.73 sqM); Albumin 3.3 g/dL (3.5-5.0); Alkaline Phosphatase 135 U/L (38-126); Anion Gap 6 mmol/L; Blood Urea Nitrogen 17 mg/dL (9-20); Calcium 8.9 mg/dL (8.4-10.2); Carbon Dioxide 24 mmol/L (22-30); Chloride 105 mmol/L (98-107); Glucose 180 mg/dL (74-99); Non-African American GFR(CKD) 83 (>60 ml/min/1.73 sqM); Potassium 4.4 mmol/L (3.5-5.1); Sodium 135 mmol/L (137-145); Total Bilirubin 0.7 mg/dL (0.2-1.3); Total Protein 5.9 g/dL (6.3-8.2)
[2020-04-20] MEDS: QUEtiapine 100 MG TAB PO SCH (15:41)
[2020-04-20] MEDS: ONDANSETRON 4 MG/2 ML VIAL IVP PRN (15:53)
--- NOTE | 2020-04-20 16:09 | XR ---
EXAMINATION TYPE: XR chest 1V portable DATE OF EXAM: 04/20/2020 COMPARISON: 04/19/2020 HISTORY: Pneumonitis TECHNIQUE: Single frontal view of the chest is obtained. FINDINGS: Increasing confluence of the right infrahilar opacity this could relate to atelectasis giv en the recent CT of 04/19/2020. Cardiomediastinal silhouette is upper limits of normal size. Subsegmen radha atelectasis at the left costophrenic angle. No new pleural effusion or pneumothorax. No acute oss eous pathology. IMPRESSION: Increasing right infrahilar opacity, possibly atelectasis given the recent CT of 04/19/20 20 with no pneumonia seen.
--- NOTE | 2020-04-20 19:43 | PN ---
PROGRESS NOTE DATE OF SERVICE: 04/20/2020 REASON FOR FOLLOWUP: the patient with tracheobronchitis. INTERVAL HISTORY: The patient is currently afebrile. Patient is breathing comfortably today. He continues to have a cough and bringing up some sputum. Sputum was provided, not sent down to the lab so far. No chest pain. No abdominal pain. No diarrhea. PHYSICAL EXAMINATION: Blood pressure 150/94 with a pulse of 120. Temperature 99. He is 96% on room air. General description: The patient is a middle-aged male lying in bed in no distress. Respiratory system: Unlabored breathing. Clear to auscultation with crackles. Heart S1, S2. Regular rate and rhythm. Abdomen soft, no tenderness. LABS: Hemoglobin is 8.2, white count is 25.7, creatinine 1.08. Lactic acid normal at 2.0. DIAGNOSTIC IMPRESSION AND PLAN: 1. Patient with admitted to the hospital with difficulty breathing, more likely chronic obstructive pulmonary disease exacerbation as the patient did have more likely chronic obstructive pulmonary disease exacerbation and bronchospasm. Clinically doubt sepsis. CT was negative for any pneumonia. The patient is covered with Unasyn along with steroids to continue, waiting for the sputum culture to finalize. 2. Elevated white count more likely steroid effect. 3. Continue supportive care. MMODL / IJN: [id number] /
[2020-04-21] MEDS: AMPICILLIN-SULBACTAM 3 GM in SODIUM CHLORIDE 0.9% 100 ML IVPB SCH ×3 (00:02→12:25)
[2020-04-21] MEDS: LORazepam 2 MG/ML INJ IV PRN ×2 (02:43→12:01)
[2020-04-21 02:49] VITALS: TEMP 98.3
[2020-04-21] MEDS: methylPREDNISolone SOD SUCCI 125 MG/2 ML VIAL IV SCH ×2 (05:31→12:25)
[2020-04-21] MEDS: THIAMINE 100 MG TAB PO SCH (07:31)
[2020-04-21] MEDS: PANTOPRAZOLE 40 MG TABLET PO SCH (07:32)
[2020-04-21] MEDS: NICOTINE 21MG/24HR PATCH TRANSDERM SCH (07:32)
[2020-04-21] MEDS: METOPROLOL TARTRATE 50 MG TAB PO SCH (07:32)
[2020-04-21 08:13] VITALS: BP 162/98; RESP 18
[2020-04-21] MEDS: IPRATROPIUM-ALBUTEROL 3 ML NEB INHALATION SCH ×2 (08:42→12:02)
[2020-04-21 12:05] VITALS: PULSE 100
[2020-04-21] MEDS: SODIUM CHLORIDE 0.9% 1,000 ML IV SCH ×2 (12:08→12:25)
--- NOTE | 2020-04-21 23:26 | DS ---
DISCHARGE SUMMARY CHIEF COMPLAINT: Cough, congestion, shortness of breath and acute alcohol. HISTORY OF PRESENT ILLNESS AND PHYSICAL EXAM: Details of this man's history and physical can be found in the initial workup. LABORATORY STUDIES: While he was in the hospital, he had laboratory studies, details of which can be found in the laboratory section of chart. COURSE IN HOSPITAL: After admission, he was placed on bedrest and started intravenous fluids and started on updrafts with IV antibiotics. Chest slowly cleared. He did well. He did go into DTs. He is still quite tremulous on the day of his discharge and even though he wanted to be released, it was felt not to be safe. He then signed out AGAINST MEDICAL ADVICE. FINAL DIAGNOSES: 1. Bilateral bronchopneumonia. 2. Bilateral purulent bronchitis. 3. Chronic obstructive pulmonary disease. 4. Acute alcohol intoxication. 5. Alcoholism. 6. Delirium tremens. OPERATIONS: None. CONSULTATION: None. He is improved. MMODL / ALEJANDRAN: [id number] /
--- NOTE | 2020-04-24 12:52 | CDI ---
Documentation Clarification Form Date: 04/24/20 From: Maria Fernanda Bejarano CCS Phone: If you have a question about this query, please contact Krystin Irene, Drilling Engineer at [phone] between 8am and 5pm. Admit Date: 04/20/20 Discharge Date:04/21/20 Patient Name: Bairon Jerome Visit Number: [id number] ATTENTION: The Clinical Documentation Specialists (CDI) and [facility] Coding Staff appreciate your assistance in clarifying documentation. Please respond to the clarification below the line at the bottom and electronically sign. The CDI & [facility] Coding staff will review the response and follow-up if needed. Please note: Queries are made part of the Legal Health Record. If you have any questions, please contact the author of this message via ITS. Dear Dr. Montana, Conflicting documentation has been found in the medical record: Consult 04/19 and PN 04/20 document: Patient with admitted to the hospital with difficulty breathing, more likely chronic obstructive pulmonary disease exacerbation as the patient did have more likely chronic obstructive pulmonary disease exacerbation and bronchospasm. CT was negative for any pneumonia. DS and PN 04/20 document: Bilateral bronchopneumonia.Bilateral purulent bronchitis.Chronic obstructive pulmonary disease. History/Risk Factors: HTN, Alcohol w/ dependence, Tobacco Clinical Indicators: Productive cough, Dyspnea Treatment: Hand nebulizer, O2 Nasa Cannula 2 lpm, IV Solu-Medrol 60 mg IV Q 6HR Zosyn 3.375 mg IVPB Once, Unasyn 3 gm IVPB Q 6HR In your opinion, what is the most clinically appropriate diagnosis for this patient? Acute bronchitis and bronchopneumonia COPD exacerbation and bronchopneumonia COPD exacerbation (pneumonia ruled out) Acute bronchitis (COPD exacerbation ruled out) Acute bronchitis (Pneumonia ruled out) COPD exacerbation with acute bronchitis and pneumonia Other explanation of clinical findings Unable to determine (no explanation for clinical findings) MTDD
--- NOTE | 2020-04-26 01:22 | MISC ---
MISCELLANOUS REPORT QUERY: COPD exacerbation and bronchopneumonia. MMODL / IJN: [id number] /
== END 2020-04-21 14:56 | disposition left against medical advice (07) | DRG 190 ==
LOC: EC 00:18 → 4SSUR 02:41 → OBSVTOIN 04-20 13:25
PROVIDERS: ADMIT Family Medicine; ATTEND Family Medicine
DX: J44.1 Chronic obstructive pulmonary disease with (acute) exacerbation (principal); J18.0 Bronchopneumonia, unspecified organism; F10.231 Alcohol dependence with withdrawal delirium; Z20.828 Contact with and (suspected) exposure to other viral communicable diseases; J44.0 Chronic obstructive pulmonary disease with (acute) lower respiratory infection; F10.220 Alcohol dependence with intoxication, uncomplicated; F17.210 Nicotine dependence, cigarettes, uncomplicated; I10 Essential (primary) hypertension; E86.0 Dehydration; K76.9 Liver disease, unspecified; Y90.8 Blood alcohol level of 240 mg/100 ml or more; Z79.899 Other long term (current) drug therapy; Z87.19 Personal history of other diseases of the digestive system; Z98.890 Other specified postprocedural states; Z87.448 Personal history of other diseases of urinary system; Z82.49 Family history of ischemic heart disease and other diseases of the circulatory system
CPT/HCPCS: 36415; 71045; 71275; 80053; 80320; 81001; 83605; 83735; 85025; 85379; 85610; 85730; 86140; 87040; 87070; 87077; 87086; 87186; 87205; 87635; 93005; 94640; 96365; 96375; 99291

== ENCOUNTER 2020-05-16 19:36 | Emergency (ER) | payer OTHER ==
[2020-05-16] MEDS ORDERED: IPRATROPIUM-ALBUTEROL 3 ML NEB INHALATION STA (20:31)
--- NOTE | 2020-05-16 21:37 | XR ---
EXAMINATION TYPE: XR chest 2V DATE OF EXAM: 05/16/2020 COMPARISON: 04/20/2020 HISTORY: Pneumonitis. Cough. Short of breath. TECHNIQUE: FINDINGS: There is mild coarsening of interstitial markings. Heart size is normal. There is no heart failure. There is no pleural effusion. Mediastinum is normal. There are no hilar masses. Bony thorax is intact. IMPRESSION: Slight increased lung markings. No pelvic consolidation or heart failure. Lung markings s lightly increased compared to old exam.
[2020-05-16 21:57] LABS: Basophils % (A) 1 %; Eosinophils # (A) 0.5 k/uL (0-0.7); Eosinophils % (A) 7 %; HCT 52.9 % (39.0-53.0); HGB 17.6 gm/dL (13.0-17.5); Lymphocytes # (A) 3.3 k/uL (1.0-4.8); Lymphocytes % (A) 47 %; MCH 33.1 pg (25.0-35.0); MCHC 33.3 g/dL (31.0-37.0); MCV 99.5 fL (80.0-100.0); Mean Platelet Volume 8.4; Monocytes # (A) 0.4 k/uL (0-1.0); Monocytes % (A) 5 %; Neutrophils # (A) 2.6 k/uL (1.3-7.7); Neutrophils % (A) 37 %; Platelet Count 216 k/uL (150-450); RBC 5.32 m/uL (4.30-5.90); RDW 13.8 % (11.5-15.5); WBC 6.9 k/uL (3.8-10.6)
[2020-05-16 22:08] LABS: Albumin 3.6 g/dL (3.5-5.0); Calcium 8.6 mg/dL (8.4-10.2); Potassium 4.3 mmol/L (3.5-5.1); Total Bilirubin 0.3 mg/dL (0.2-1.3)
[2020-05-16] MEDS ORDERED: methylPREDNISolone SOD SUCCI 125 MG/2 ML VIAL IV STA (22:27)
[2020-05-16] MEDS ORDERED: SODIUM CHLORIDE 0.9% 1,000 ML IV ONE (22:27)
--- NOTE | 2020-05-16 22:42 | ED ---
SOB HPI - General Chief Complaint: Shortness of Breath Stated Complaint: ETOH Time Seen by Provider: 05/16/20 20:00 Source: patient, EMS Mode of arrival: EMS Limitations: no limitations - History of Present Illness Initial Comments: 44-year-old male patient presents to the emergency department today for evaluation after being found drunk in someone's front yard. When EMS came to pick the patient up states he is having some increased coughing and shortness of breath. Patient states he was admitted recently for pneumonia. States he did see his primary care physician is currently taking amoxicillin, his last doses today. States he is coughing up green sputum. He does continue to smoke. Denies any chest pain. Patient states he does drink alcohol regularly. Denies any fever or chills. Denies any hemoptysis. Denies any dizziness, weakness, or fainting. Patient denies any recent rash, abdominal pain, nausea, vomiting, diarrhea, constipation, back pain, numbness, tingling, hematuria, dysuria, urinary urgency, urinary frequency, headache, visual changes, or any other complaints. - Related Data Home Medications Medication Instructions Recorded Confirmed Albuterol Sulfate [Albuterol 2 puff PO RT-QID PRN 04/19/20 04/19/20 Sulfate Hfa] Celecoxib [CeleBREX] 200 mg PO DAILY PRN 04/19/20 04/19/20 Diclofenac Sodium Gel [Voltaren 2 - 3 gm TOPICAL BID PRN 04/19/20 04/19/20 Gel] Docusate Sodium [Dok] 100 mg PO DAILY PRN 04/19/20 04/19/20 HYDROcodone/APAP 10-325MG [[place] 1 each PO BID PRN 04/19/20 04/19/20 10-325] Omeprazole 20 mg PO DAILY 04/19/20 04/19/20 QUEtiapine FUMARATE 100 mg PO DAILY 04/19/20 04/19/20 Umeclidinium [place] [Incruse 1 puff INHALATION RT-DAILY 04/19/20 04/19/20 Ellipta] rOPINIRole HCL [Requip] 0.5 mg PO HS 04/19/20 04/19/20 valACYclovir [Valtrex] 100 mg PO Q12H PRN 04/19/20 04/19/20 Previous Rx's Medication Instructions Recorded Metoprolol Tartrate [Lopressor] 50 mg PO BID #60 tab 09/26/18 predniSONE 50 mg PO DAILY #5 tablet 05/16/20 Allergies Allergy/AdvReac Type Severity Reaction Status Date / Time No Known Allergies Allergy Verified 04/19/20 08:44 Review of Systems ROS Statement: Those systems with pertinent positive or pertinent negative responses have been documented in the HPI. ROS Other: All systems not noted in ROS Statement are negative. Past Medical History Past Medical History: Hypertension, Liver Disease, Renal Disease Additional Past Medical History / Comment(s): pancreatitis, ETOh History of Any Multi-Drug Resistant Organisms: None Reported Past Surgical History: No Surgical Hx Reported Additional Past Surgical History / Comment(s): Bronchoscopy, lymph node removed Past Anesthesia/Blood Transfusion Reactions: No Reported Reaction Past Psychological History: No Psychological Hx Reported Smoking Status: Current every day smoker Past Alcohol Use History: Daily, Heavy Past Drug Use History: None Reported - Past Family History Mother Family Medical History: Hypertension Additional Family Medical History / Comment(s): Mother is alive at age 62 with history of hypertension. Father Additional Family Medical History / Comment(s): Father at age 36 from overdose of methadone and benzodiazepines with aspiration. Brother(s) Additional Family Medical History / Comment(s): Patient has 2 brothers with no major medical problems. Patient does not have any sisters. Patient does not have any children. General Exam Limitations: no limitations General appearance: alert, in no apparent distress, other (This is a well- developed, well-nourished adult male patient in no acute distress. Vital signs upon presentation showed temperature 97.8F, pulse 86, respirations 17, blood pressure 96/66, pulse ox 96% on room air.) Eye exam: Present: normal appearance, PERRL, EOMI. Absent: scleral icterus, conjunctival injection, periorbital swelling ENT exam: Present: normal exam, normal oropharynx, mucous membranes moist Respiratory exam: Present: wheezes (Course inspiratory and expiratory wheezing noted throughout the posterior lung cheung). Absent: normal lung sounds bilaterally, respiratory distress, rales, rhonchi, stridor Cardiovascular Exam: Present: regular rate, normal rhythm, normal heart sounds. Absent: systolic murmur, diastolic murmur, rubs, gallop, clicks GI/Abdominal exam: Present: soft, normal bowel sounds. Absent: distended, tenderness, guarding, rebound, rigid Neurological exam: Present: alert, oriented X3, CN II-XII intact Psychiatric exam: Present: normal affect, normal mood Skin exam: Present: warm, dry, intact, normal color. Absent: rash Course Vital Signs 05/16/20 05/16/20 05/16/20 19:41 20:47 21:25 Temperature 97.8 F Pulse Rate 86 80 Respiratory 17 19 16 Rate Blood Pressure 96/66 O2 Sat by Pulse 96 Oximetry 05/16/20 05/16/20 21:32 22:47 Temperature 98.0 F Pulse Rate 82 85 Respiratory 16 18 Rate Blood Pressure 103/91 O2 Sat by Pulse 96 Oximetry Medical Decision Making - Medical Decision Making 44-year-old male patient presents to the emergency department today for evaluation of alcohol intoxication. He did inform EMS personnel that he was having increased coughing and shortness of breath. Physical examination did reveal coarse inspiratory next which were he wheezing. Vital signs are within normal ranges oxygen saturation maintained around 96%. He was given a breathing treatment, steroids. Alcohol level was increased. Patient is answering questions appropriately and gait is steady. Patient will be discharged home to follow-up with his primary care physician for recheck in 1-2 days. Return parameters were discussed in detail. He verbalizes understanding and agrees with this plan. - Lab Data Result diagrams: 05/16/20 21:40 05/16/20 21:40 Lab Results 05/16/20 05/16/20 05/16/20 Range/Units 21:40 21:40 21:40 WBC 6.9 (3.8-10.6) k/uL RBC 5.32 (4.30-5.90) m/uL Hgb 17.6 H (13.0-17.5) gm/dL Hct 52.9 (39.0-53.0) % MCV 99.5 (80.0-100.0) fL MCH 33.1 (25.0-35.0) pg MCHC 33.3 (31.0-37.0) g/dL RDW 13.8 (11.5-15.5) % Plt Count 216 (150-450) k/uL Neutrophils % 37 % Lymphocytes % 47 % Monocytes % 5 % Eosinophils % 7 % Basophils % 1 % Neutrophils # 2.6 (1.3-7.7) k/uL Lymphocytes # 3.3 (1.0-4.8) k/uL Monocytes # 0.4 (0-1.0) k/uL Eosinophils # 0.5 (0-0.7) k/uL Basophils # 0.0 (0-0.2) k/uL Sodium 141 (137-145) mmol/L Potassium 4.3 (3.5-5.1) mmol/L Chloride 106 (98-107) mmol/L Carbon Dioxide 29 (22-30) mmol/L Anion Gap 6 mmol/L BUN 14 (9-20) mg/dL Creatinine 1.57 H (0.66-1.25) mg/dL Est GFR (CKD-EPI)AfAm 61 (>60 ml/min/1.73 sqM) Est GFR (CKD-EPI)NonAf 53 (>60 ml/min/1.73 sqM) Glucose 112 H (74-99) mg/dL Plasma Lactic Acid [place] 1.5 (0.7-2.0) mmol/L Calcium 8.6 (8.4-10.2) mg/dL Total Bilirubin 0.3 (0.2-1.3) mg/dL AST 63 H (17-59) U/L ALT 39 (4-49) U/L Alkaline Phosphatase 169 H (38-126) U/L Total Protein 6.0 L (6.3-8.2) g/dL Albumin 3.6 (3.5-5.0) g/dL Serum Alcohol 269 H* mg/dL - Radiology Data Radiology results: report reviewed, image reviewed Two-view x-ray of the chest is obtained. Report was reviewed in its entirety. Impression by Dr. August shows slightly increased lung markings. No consolidation or heart failure. Lung markings slightly increased compared to old exam. Disposition Clinical Impression: Shortness of breath, COPD (chronic obstructive pulmonary disease), Alcohol intoxication Disposition: HOME SELF-CARE Condition: Good Instructions (If sedation given, give patient instructions): COPD (Chronic Obstructive Pulmonary Disease) (ED), Alcohol Intoxication (ED), Shortness of Breath (ED) Additional Instructions: Increase fluids. Rest. Complete steroid prescription in full. Continue your antibiotics. Follow up for outpatient alcohol rehab. Follow-up with your primary care physician for recheck in 1-2 days. Return to the emergency department immediately for any new, worsening, or concerning symptoms Prescriptions: predniSONE 50 mg PO DAILY #5 tablet Is patient prescribed a controlled substance at d/c from ED?: No Referrals: Nash Jacob DO [Primary Care Provider] - 1-2 days Time of Disposition: 22:42
[2020-05-16 22:47] VITALS: RESP 18
[2020-05-16 23:32] VITALS: BP 107/78; PULSE 70; TEMP 98.2
== END 2020-05-16 23:32 | disposition home or self-care (01) ==
LOC: EC 19:36
DX: J44.9 Chronic obstructive pulmonary disease, unspecified (principal); F10.129 Alcohol abuse with intoxication, unspecified; I10 Essential (primary) hypertension; F17.200 Nicotine dependence, unspecified, uncomplicated; Z79.899 Other long term (current) drug therapy
CPT/HCPCS: 36415; 94640; 80053; 83605; 85025; 87040; 71046; 99285; 96374; G0480; J2930; 80320

== ENCOUNTER 2020-05-29 09:47 | Emergency (ER) | payer OTHER ==
[2020-05-29] MEDS ORDERED: IPRATROPIUM-ALBUTEROL 3 ML NEB INHALATION STA (09:57)
[2020-05-29 10:01] VITALS: BP 141/110; RESP 18; TEMP 98
--- NOTE | 2020-05-29 10:03 | ED ---
General Adult HPI - General Stated complaint: detox Time Seen by Provider: 05/29/20 09:52 Source: patient, EMS, RN notes reviewed Mode of arrival: EMS Limitations: no limitations - History of Present Illness Initial comments: Patient is a pleasant 44-year-old male presenting to the emergency Department with generalized weakness. Symptoms have occurred over the past couple of days. Patient is trying to discontinue alcohol use. Patient is able to walk around the disc is fatigued. Patient does have cough and mild soreness of breath. Patient is a smoker. Patient does have recent pneumonia. Patient did have some green sputum this morning. No isolated area of weakness. Patient is drinking and trying to discontinue drinking. Patient drinks about half a pint today. P atient normally drinks around 2 of one fifth alcohol bottles daily. - Related Data Home Medications Medication Instructions Recorded Confirmed Albuterol Sulfate [Albuterol 2 puff PO RT-QID PRN 04/19/20 04/19/20 Sulfate Hfa] Celecoxib [CeleBREX] 200 mg PO DAILY PRN 04/19/20 04/19/20 Diclofenac Sodium Gel [Voltaren 2 - 3 gm TOPICAL BID PRN 04/19/20 04/19/20 Gel] Docusate Sodium [Dok] 100 mg PO DAILY PRN 04/19/20 04/19/20 HYDROcodone/APAP 10-325MG [[place] 1 each PO BID PRN 04/19/20 04/19/20 10-325] Omeprazole 20 mg PO DAILY 04/19/20 04/19/20 QUEtiapine FUMARATE 100 mg PO DAILY 04/19/20 04/19/20 Umeclidinium [place] [Incruse 1 puff INHALATION RT-DAILY 04/19/20 04/19/20 Ellipta] rOPINIRole HCL [Requip] 0.5 mg PO HS 04/19/20 04/19/20 valACYclovir [Valtrex] 100 mg PO Q12H PRN 04/19/20 04/19/20 Previous Rx's Medication Instructions Recorded Metoprolol Tartrate [Lopressor] 50 mg PO BID #60 tab 09/26/18 predniSONE 50 mg PO DAILY #5 tablet 05/16/20 Levofloxacin [Levaquin] 750 mg PO DAILY 5 Days #5 tab 05/29/20 Allergies Allergy/AdvReac Type Severity Reaction Status Date / Time No Known Allergies Allergy Verified 04/19/20 08:44 Review of Systems ROS Statement: Those systems with pertinent positive or pertinent negative responses have been documented in the HPI. ROS Other: All systems not noted in ROS Statement are negative. Constitutional: Denies: fever Eyes: Denies: eye pain ENT: Denies: ear pain Respiratory: Reports: cough Cardiovascular: Denies: chest pain Endocrine: Reports: fatigue Gastrointestinal: Denies: abdominal pain Genitourinary: Denies: dysuria Musculoskeletal: Denies: back pain Skin: Denies: rash Neurological: Reports: as per HPI Past Medical History Past Medical History: Hypertension, Liver Disease, Renal Disease Additional Past Medical History / Comment(s): pancreatitis, ETOh History of Any Multi-Drug Resistant Organisms: None Reported Past Surgical History: No Surgical Hx Reported Additional Past Surgical History / Comment(s): Bronchoscopy, lymph node removed Past Anesthesia/Blood Transfusion Reactions: No Reported Reaction Past Psychological History: No Psychological Hx Reported Smoking Status: Current every day smoker Past Alcohol Use History: Daily, Heavy Past Drug Use History: None Reported - Past Family History Mother Family Medical History: Hypertension Additional Family Medical History / Comment(s): Mother is alive at age 62 with history of hypertension. Father Additional Family Medical History / Comment(s): Father at age 36 from overdose of methadone and benzodiazepines with aspiration. Brother(s) Additional Family Medical History / Comment(s): Patient has 2 brothers with no major medical problems. Patient does not have any sisters. Patient does not have any children. General Exam Limitations: no limitations General appearance: alert, in no apparent distress Head exam: Present: normocephalic Eye exam: Present: normal appearance, PERRL Neck exam: Present: normal inspection Respiratory exam: Present: wheezes Cardiovascular Exam: Present: regular rate, normal rhythm GI/Abdominal exam: Present: soft. Absent: tenderness Extremities exam: Present: normal inspection. Absent: pedal edema, calf tenderness Neurological exam: Present: alert Psychiatric exam: Present: normal affect, normal mood Skin exam: Present: normal color Course Vital Signs 05/29/20 05/29/20 05/29/20 09:51 10:01 10:19 Temperature 98 F Pulse Rate 110 H 95 Pulse Rate [ 102 H Apical] Respiratory 18 Rate Blood Pressure 141/110 O2 Sat by Pulse 95 Oximetry 05/29/20 10:28 Temperature Pulse Rate 94 Pulse Rate [ Apical] Respiratory Rate Blood Pressure O2 Sat by Pulse Oximetry EKG Findings - EKG Comments: EKG Findings:: Normal sinus rhythm 96. MD 180. QRS 82. QT 344. QTC 434. Normal axis. Normal QRS. No acute ST change. Medical Decision Making - Medical Decision Making Patient reportedly was upset that he was not given Ativan and left. Follow-up nurse has been contacted and prescription written for possible pneumonia - Lab Data Result diagrams: 05/29/20 10:05 Lab Results 05/29/20 05/29/20 Range/Units 10:05 10:05 WBC 10.8 H (3.8-10.6) k/uL RBC 4.82 (4.30-5.90) m/uL Hgb 16.1 (13.0-17.5) gm/dL Hct 47.5 (39.0-53.0) % MCV 98.6 (80.0-100.0) fL MCH 33.5 (25.0-35.0) pg MCHC 33.9 (31.0-37.0) g/dL RDW 13.8 (11.5-15.5) % Plt Count 183 (150-450) k/uL Neutrophils % 80 % Lymphocytes % 16 % Monocytes % 3 % Eosinophils % 0 % Basophils % 0 % Neutrophils # 8.6 H (1.3-7.7) k/uL Lymphocytes # 1.8 (1.0-4.8) k/uL Monocytes # 0.3 (0-1.0) k/uL Eosinophils # 0.0 (0-0.7) k/uL Basophils # 0.0 (0-0.2) k/uL PT 11.0 (9.0-12.0) sec INR 1.1 (<1.2) APTT 24.1 (22.0-30.0) sec - Radiology Data Radiology results: image reviewed (Chest x-ray shows density right medial lung that may represent developing infiltrate.) Disposition Clinical Impression: Alcohol abuse, Pneumonia Disposition: Left Against Medical Advice Prescriptions: Levofloxacin [Levaquin] 750 mg PO DAILY 5 Days #5 tab Is patient prescribed a controlled substance at d/c from ED?: No Referrals: Nash Jacob DO [Primary Care Provider] - 1-2 days Time of Disposition: 10:51
[2020-05-29] MEDS ORDERED: ONDANSETRON 4 MG/2 ML VIAL IVP STA (10:20)
[2020-05-29 10:21] LABS: Basophils % (A) 0 %; Eosinophils % (A) 0 %; HCT 47.5 % (39.0-53.0); HGB 16.1 gm/dL (13.0-17.5); Lymphocytes # (A) 1.8 k/uL (1.0-4.8); Lymphocytes % (A) 16 %; MCH 33.5 pg (25.0-35.0); MCHC 33.9 g/dL (31.0-37.0); MCV 98.6 fL (80.0-100.0); Mean Platelet Volume 8.7; Monocytes # (A) 0.3 k/uL (0-1.0); Monocytes % (A) 3 %; Neutrophils # (A) 8.6 k/uL (1.3-7.7); Neutrophils % (A) 80 %; Platelet Count 183 k/uL (150-450); RBC 4.82 m/uL (4.30-5.90); RDW 13.8 % (11.5-15.5); WBC 10.8 k/uL (3.8-10.6)
[2020-05-29 10:28] LABS: INR 1.1 (<1.2); Partial Thromboplastin Time 24.1 sec (22.0-30.0)
[2020-05-29 10:29] VITALS: PULSE 94
--- NOTE | 2020-05-29 10:37 | XR ---
EXAMINATION TYPE: XR chest 2V DATE OF EXAM: 05/29/2020 COMPARISON: NONE HISTORY: Chest pain TECHNIQUE: Frontal and lateral views of the chest are obtained. FINDINGS: Increased density right medial lung base may reflect developing infiltrate. Correlate clinically. No evidence for pneumothorax. No pleural effusion. The cardiac silhouette size is within normal limits. The osseous structures are grossly intact. IMPRESSION: 1. Increased density right medial lung base may reflect developing infiltrate. Correlate clinically.
[2020-05-29 10:49] LABS: Albumin 3.5 g/dL (3.5-5.0); Calcium 8.4 mg/dL (8.4-10.2); Magnesium 1.4 mg/dL (1.6-2.3); Potassium 4.6 mmol/L (3.5-5.1); Total Bilirubin 0.6 mg/dL (0.2-1.3); Total Protein 5.9 g/dL (6.3-8.2)
== END 2020-05-29 10:56 | disposition left against medical advice (07) ==
LOC: EC 09:47
DX: J18.9 Pneumonia, unspecified organism (principal); F10.10 Alcohol abuse, uncomplicated; I10 Essential (primary) hypertension; F17.200 Nicotine dependence, unspecified, uncomplicated; Z79.899 Other long term (current) drug therapy; Y90.7 Blood alcohol level of 200-239 mg/100 ml; Z53.29 Procedure and treatment not carried out because of patient's decision for other reasons
CPT/HCPCS: 36415; 94640; 93005; 80053; 83735; 85025; 85610; 85730; 71046; 99285; 96374; G0480; J2405; 80320

== ENCOUNTER → 2020-12-02 | Outpatient (CLI) | payer OTHER ==
[2020-12-02 19:59] LABS: African American GFR (CKD) 64.2 (60.0-200.0); Albumin 4.6 g/dL (3.80-4.90); Albumin/Globulin Ratio 2.71 (1.60-3.17); Anion Gap 7.6 mmol/L (4.00-12.00); BUN/Creat Ratio 20.67 Ratio (12.00-20.00); Calcium 9.5 mg/dL (8.7-10.3); Carbon Dioxide 22.4 mmol/L (21.6-31.8); Globulin 1.7 g/dL (1.6-3.3); Non-African American GFR(CKD) 55.4 (60.0-200.0); Potassium 5.7 mmol/L (3.5-5.5); Total Bilirubin 0.3 mg/dL (0.3-1.2); Total Protein 6.3 g/dL (6.2-8.2)
== END | disposition home or self-care (01) ==
LOC: LABWHC1 13:35
PROVIDERS: ATTEND Family Medicine
DX: F10.20 Alcohol dependence, uncomplicated (principal)
CPT/HCPCS: 36415; 80053

== ENCOUNTER → 2020-12-26 | Outpatient (CLI) | payer OTHER ==
[2020-12-26 21:59] LABS: African American GFR (CKD) 51.5 (60.0-200.0); Albumin 4.9 g/dL (3.80-4.90); Albumin/Globulin Ratio 2.88 (1.60-3.17); Anion Gap 9.7 mmol/L (4.00-12.00); BUN/Creat Ratio 18.33 Ratio (12.00-20.00); Calcium 10.2 mg/dL (8.7-10.3); Carbon Dioxide 23.3 mmol/L (21.6-31.8); Globulin 1.7 g/dL (1.6-3.3); Non-African American GFR(CKD) 44.5 (60.0-200.0); Potassium 5.4 mmol/L (3.5-5.5); Total Bilirubin 0.6 mg/dL (0.3-1.2); Total Protein 6.6 g/dL (6.2-8.2)
== END | disposition home or self-care (01) ==
LOC: LABWHC1 11:17
PROVIDERS: ATTEND Physician Assistant
DX: E87.5 Hyperkalemia (principal)
CPT/HCPCS: 36415; 80053

== ENCOUNTER → 2021-05-12 | Outpatient (CLI) | payer OTHER ==
[2021-05-12 13:19] LABS: African American GFR (CKD) 70 (>60 ml/min/1.73 sqM); Anion Gap 8 mmol/L; Blood Urea Nitrogen 19 mg/dL (9-20); Calcium 9.7 mg/dL (8.4-10.2); Carbon Dioxide 23 mmol/L (22-30); Chloride 110 mmol/L (98-107); Glucose 91 mg/dL (74-99); Non-African American GFR(CKD) 61 (>60 ml/min/1.73 sqM); Sodium 141 mmol/L (137-145)
[2021-05-12 13:20] LABS: Potassium 5.6 mmol/L (3.5-5.1)
[2021-05-12 19:50] LABS: % Iron Saturation 9.14 (15.00-50.00); Iron 33 ug/dL (65-175); Total Iron Binding Capacity 361 ug/dL (228-460)
[2021-05-12 19:59] LABS: Ferritin 52.7 ng/mL (22.0-322.0)
== END | disposition home or self-care (01) ==
LOC: LABWHC1 11:49
PROVIDERS: ATTEND Internal Medicine Nephrology
DX: N18.32 Chronic kidney disease, stage 3b (principal)
CPT/HCPCS: 36415; 80048; 82306; 82728; 83540; 83550

== ENCOUNTER → 2021-05-21 | Outpatient (CLI) | payer OTHER ==
--- NOTE | 2021-05-21 08:28 | US ---
EXAMINATION TYPE: US kidneys/renal and bladder DATE OF EXAM: 05/21/2021 COMPARISON: NONE CLINICAL HISTORY: N18.32 chronic kidney stage 3b. EXAM MEASUREMENTS: Right Kidney: 10.1 x 4.5 x 4.7 cm Left Kidney: 10.0 x 3.9 x 4.0 cm Right Kidney: No hydronephrosis or masses seen Left Kidney: No hydronephrosis or masses seen Bladder: wnl Bilateral Jets seen: yes There is no evidence for hydronephrosis at this point in time. No nephrolithiasis is seen. No kemi s are identified. The urinary bladder is anechoic. Bilateral ureteral jets are seen. IMPRESSION: No hydronephrosis.
== END | disposition home or self-care (01) ==
LOC: RADUSWWP 07:47
PROVIDERS: ATTEND Internal Medicine Nephrology
DX: N18.32 Chronic kidney disease, stage 3b (principal)
CPT/HCPCS: 76770

== ENCOUNTER → 2022-11-12 | Outpatient (CLI) | payer OTHER ==
[2022-11-12 19:32] LABS: Basophils # (A) 0.07 X 10*3/uL (0.00-0.10); Basophils % (A) 0.6 %; Eosinophils # (A) 0.52 X 10*3/uL (0.04-0.35); Eosinophils % (A) 4.3 %; HCT 42.4 % (39.6-50.0); HGB 14.4 g/dL (13.0-17.0); Immature Grans, Automated 0.4 %; Lymphocytes # (A) 3.19 X 10*3/uL (0.90-5.00); Lymphocytes % (A) 26.4 %; MCH 31.5 pg (27.0-32.0); MCV 92.8 fL (80.0-97.0); Mean Platelet Volume 12.1 fL (9.5-12.2); Monocytes # (A) 0.92 X 10*3/uL (0.20-1.00); Monocytes % (A) 7.6 %; NRBC Per 100 WBC 0 /100 WBCS (0.0-0.0); Neutrophils # (A) 7.32 X 10*3/uL (1.80-7.70); Neutrophils % (A) 60.7 %; Platelet Count 270 X 10*3/uL (140-440); RBC 4.57 X 10*6/uL (4.40-5.60); RDW 13.5 % (11.5-14.5); WBC 12.07 X 10*3/uL (4.50-10.00)
[2022-11-13 00:19] LABS: African American GFR (CKD) 60.9 (60.0-200.0); Albumin 4.8 g/dL (3.8-4.9); Albumin/Globulin Ratio 2.31 (1.60-3.17); Anion Gap 13.1 mmol/L (10.00-18.00); BUN/Creat Ratio 28.26 Ratio (12.00-20.00); Blood Urea Nitrogen 43.8 mg/dL (9.0-27.0); Calcium 10.2 mg/dL (8.7-10.3); Carbon Dioxide 21.7 mmol/L (20.0-27.5); Globulin 2.1 g/dL (1.6-3.3); Non-African American GFR(CKD) 52.5 (60.0-200.0); Potassium 5.5 mmol/L (3.5-5.5); Total Bilirubin 0.3 mg/dL (0.30-1.20); Total Protein 6.9 g/dL (6.2-8.2)
== END | disposition home or self-care (01) ==
LOC: LABWHC1 12:01
PROVIDERS: ATTEND Physician Assistant
DX: F10.20 Alcohol dependence, uncomplicated (principal)
CPT/HCPCS: 36415; 80053; 85025

== ENCOUNTER 2022-11-23 10:54 | Emergency (ER) | payer OTHER ==
--- NOTE | 2022-11-23 12:51 | XR ---
EXAMINATION TYPE: XR chest 2V DATE OF EXAM: 11/23/2022 12:42 PM COMPARISON: Chest radiographs from 05/29/2020 TECHNIQUE: XR chest 2V Frontal and lateral views of the chest. CLINICAL INDICATION:Male, 47 years old with history of Cough; FINDINGS: Lungs/Pleura: There is no evidence of pleural effusion, focal consolidation, or pneumothorax. Pulmonary vascularity: Unremarkable. Heart/mediastinum: Cardiomediastinal silhouette is unremarkable. Musculoskeletal: No acute osseous pathology. IMPRESSION: No acute cardiopulmonary disease/process.
--- NOTE | 2022-11-23 13:03 | ED ---
URI HPI - General Chief Complaint: Upper Respiratory Infection Stated Complaint: cough, congestion Time Seen by Provider: 11/23/22 12:30 Source: patient, RN notes reviewed Mode of arrival: ambulatory Limitations: no limitations - History of Present Illness Initial Comments: 47-year-old male with a history of alcoholism history of Suboxone use who recent ly left [place] after successfully getting off of the same who presents complains of frontal sinus pain cough some shortness of breath he believes he may have bronchitis. He states his symptoms actually going on and she is somewhat over the past couple weeks. No overt chest pain no overt fevers chills or sweats at this time. No phlegm production with his cough. Other current complaints or modifying factors MD Complaint: cough, nasal congestion, sinus pain, other - Related Data Home Medications Medication Instructions Recorded Confirmed Albuterol Sulfate [Albuterol 2 puff PO RT-QID PRN 04/19/20 04/19/20 Sulfate Hfa] Celecoxib [CeleBREX] 200 mg PO DAILY PRN 04/19/20 04/19/20 Diclofenac Sodium Gel [Voltaren 2 - 3 gm TOPICAL BID PRN 04/19/20 04/19/20 Gel] Docusate Sodium [Dok] 100 mg PO DAILY PRN 04/19/20 04/19/20 HYDROcodone/APAP 10-325MG [[place] 1 each PO BID PRN 04/19/20 04/19/20 10-325] Omeprazole 20 mg PO DAILY 04/19/20 04/19/20 QUEtiapine FUMARATE 100 mg PO DAILY 04/19/20 04/19/20 Umeclidinium [place] [Incruse 1 puff INHALATION RT-DAILY 04/19/20 04/19/20 Ellipta] rOPINIRole HCL [Requip] 0.5 mg PO HS 04/19/20 04/19/20 valACYclovir HCL [Valtrex] 100 mg PO Q12H PRN 04/19/20 04/19/20 Previous Rx's Medication Instructions Recorded Metoprolol Tartrate [Lopressor] 50 mg PO BID #60 tab 09/26/18 predniSONE 50 mg PO DAILY #5 tablet 05/16/20 Levofloxacin [Levaquin] 750 mg PO DAILY 5 Days #5 tab 05/29/20 Nirmatrelvir/Ritonavir [Paxlovid 1 each PO W/BRKFST #10 each 11/23/22 300-100 mg Pack (Eua)] predniSONE [Deltasone] 20 mg PO BID #10 tab 11/23/22 Allergies Allergy/AdvReac Type Severity Reaction Status Date / Time No Known Allergies Allergy Verified 04/19/20 08:44 Review of Systems ROS Statement: Those systems with pertinent positive or pertinent negative responses have been documented in the HPI. ROS Other: All systems not noted in ROS Statement are negative. Past Medical History Past Medical History: Hypertension, Liver Disease, Renal Disease Additional Past Medical History / Comment(s): pancreatitis, ETOh History of Any Multi-Drug Resistant Organisms: None Reported Past Surgical History: No Surgical Hx Reported Additional Past Surgical History / Comment(s): Bronchoscopy, lymph node removed Past Anesthesia/Blood Transfusion Reactions: No Reported Reaction Past Psychological History: No Psychological Hx Reported Smoking Status: Current every day smoker Past Alcohol Use History: None Reported Past Drug Use History: None Reported - Past Family History Mother Family Medical History: Hypertension Additional Family Medical History / Comment(s): Mother is alive at age 62 with history of hypertension. Father Additional Family Medical History / Comment(s): Father at age 36 from overdose of methadone and benzodiazepines with aspiration. Brother(s) Additional Family Medical History / Comment(s): Patient has 2 brothers with no major medical problems. Patient does not have any sisters. Patient does not have any children. General Exam - General Exam Comments Initial Comments: This is a well-developed well-nourished awake alert oriented 4 male Limitations: no limitations General appearance: alert, in no apparent distress Head exam: Present: atraumatic, normocephalic, normal inspection Eye exam: Present: normal appearance, PERRL, EOMI. Absent: scleral icterus, conjunctival injection, periorbital swelling ENT exam: Present: normal exam, mucous membranes moist, other (Tenderness to percussion over the maxillary sinuses. Boggy nasal mucosa.) Neck exam: Present: normal inspection, full ROM, other (No stridor JVD or bruits). Absent: tenderness, meningismus, lymphadenopathy Respiratory exam: Present: normal lung sounds bilaterally. Absent: respiratory distress, wheezes, rales, rhonchi, stridor Cardiovascular Exam: Present: regular rate, normal rhythm, normal heart sounds. Absent: systolic murmur, diastolic murmur, rubs, gallop, clicks GI/Abdominal exam: Absent: distended, tenderness, guarding, rebound, rigid Extremities exam: Present: normal inspection, full ROM, normal capillary refill. Absent: tenderness, pedal edema, joint swelling, calf tenderness Back exam: Present: normal inspection Neurological exam: Present: alert, oriented X3, CN II-XII intact Psychiatric exam: Present: normal affect, normal mood Skin exam: Present: warm, dry, intact, normal color. Absent: rash Course Vital Signs 11/23/22 11/23/22 11/23/22 11:45 13:00 14:10 Temperature 97.8 F 98.1 F Pulse Rate 88 82 Respiratory 18 18 20 Rate Blood Pressure 130/90 126/58 O2 Sat by Pulse 100 99 Oximetry Medical Decision Making - Medical Decision Making I did discuss findings with patient and he is code positive he believes his symptoms that she started about 4 days ago. He will be placed on appropriate medications including steroids he does have an albuterol inhaler already in addition to vitamin C and vitamin D3 and zinc supplementation, Was pt. sent in by a medical professional or institution? @ No -[by , PA, TINSMITH APPRENTICE, urgent care, hospital, or senior living] Did you speak to anyone other than the patient for history? @ No-[EMS, parent, family, police, friend?] Did you review nursing and triage notes? @ Yes-[agree or disagree, why?] Were old charts reviewed? @ No-[outside hosp., previous admissions, EMS record, old EKG, old radiological studies, urgent care reports/EKGs, senior living records?] Differential Diagnosis? @ Dyspnea with the differential to include bronchitis or pneumonia clinical presentation is more consistent with orchitis and question-[chest pain, altered mental status abdominal pain women, abdominal pain men, vaginal bleeding, weakn ess, fever, dyspnea, syncope, headache, dizziness, GI bleed, back pain, seizure] EKG interpreted by me (3pts min.)? @ -[none] X-rays interpreted by me (1pt min.)? @ X-rays negative for acute process-[none] CT interpreted by me (1pt min.)? @ -[none] U/S interpreted by me (1pt. min.)? @ -[none] What testing was considered but not performed? (CT, X-rays, U/S, labs)? Why? @ No [CT, X-rays, U/S, labs? Why?] What meds were considered but not given? Why? @ -[none] Did you discuss the management of the patient with other professionals? @ No -[professionals i.e. Dr, PA, TINSMITH APPRENTICE, Lab, RT, Psych Nurse, Welding Production Supervisor, Resident Inspector, Teacher, Retort Unloader, case manager specialist? Give summary] Did you reconcile home meds? @ -[none] Was smoking cessation discussed for >3mins.? @ Yes-[none] Was critical care preformed (if so, how long)? @ -[none] Were there social determinants of health that impacted care today? How? (Homelessness, low income, unemployed, alcoholism, drug addiction, transportation, low edu. Level, literacy, decrease access to med. care, correction, rehab)? @ -[Homelessness, low income, unemployed, alcoholism, drug addiction, transportation, low edu. Level, literacy, decrease access to med. care, correction, rehab?] Was there de-escalation of care discussed even if they declined? (Discuss DNR or withdrawal of care, Hospice)? @ -[Discuss DNR or withdrawal of care, Hospice?] What co-morbidities impacted this encounter? (DM, HTN, Smoking, COPD, CAD, Cancer, CVA, Hep., AIDS, mental health diagnosis, sleep apnea, morbid obesity)? @ Patient discharged-[DM, HTN, Smoking, COPD, CAD, Cancer, CVA, Hep., AIDS, mental health diagnosis, sleep apnea, morbid obesity?] Was patient admitted / discharged? @ -[hospital course] Undiagnosed new problem with uncertain prognosis? @ -[none] Drug Therapy requiring intensive monitoring for toxicity (Heparin, Nitro, Insulin, Cardizem)? @ -[none] Were any procedures done? @ -[none] Diagnosis/symptom? @ Acute-[default] Acute, or Chronic, or Acute on Chronic? @ -[default] Uncomplicated (without systemic symptoms) or Complicated (systemic symptoms)? @ -[default] Side effects of treatment? @ -[none] Exacerbation, Progression, or Severe Exacerbation] @ -[no] Poses a threat to life or bodily function? @ -[no] - Lab Data Lab Results 11/23/22 Range/Units 12:51 Influenza Type A (PCR) Not Detected (Not Detectd) Influenza Type B (PCR) Not Detected (Not Detectd) RSV (PCR) Not Detected (Not Detectd) SARS-CoV-2 (PCR) Detected A (Not Detectd) - Radiology Data Interpreted by me: Imaging evaluated by me no acute processes seen Disposition Clinical Impression: COVID-19, Asthmatic bronchitis, Viral syndrome Disposition: HOME SELF-CARE Condition: Good Instructions (If sedation given, give patient instructions): Upper Respiratory Infection (ED), Acute Bronchitis (ED), Coronavirus Disease 2019 (COVID-19), Face Coverings (Masks) and COVID-19 (ED), Safely Care for Someone Who Has COVID-19 (ED), How to Recover from COVID-19 at Home (ED), Social Distancing Guidelines for COVID-19 (ED) Prescriptions: predniSONE [Deltasone] 20 mg PO BID #10 tab Nirmatrelvir/Ritonavir [Paxlovid 300-100 mg Pack (Eua)] 1 each PO W/BRKFST #10 each Is patient prescribed a controlled substance at d/c from ED?: No Referrals: Nash Jacob DO [Primary Care Provider] - 1-2 days Decision Date: 11/23/22 Decision Time: 14:35
[2022-11-23 14:11] VITALS: BP 126/58; PULSE 82; RESP 20; TEMP 98.1
[2022-11-23] MEDS ORDERED: predniSONE 50 MG TAB PO STA (14:25)
== END 2022-11-23 14:45 | disposition home or self-care (01) ==
LOC: EC 10:54
DX: U07.1 COVID-19 (principal); J45.909 Unspecified asthma, uncomplicated; I10 Essential (primary) hypertension; F17.200 Nicotine dependence, unspecified, uncomplicated; Z79.899 Other long term (current) drug therapy
CPT/HCPCS: 87636; 71046; 99283; J7512

== ENCOUNTER 2022-12-16 17:43 | Emergency (ER) | payer OTHER ==
[2022-12-16 17:53] VITALS: BP 137/72; PULSE 110; RESP 24; TEMP 97.3
[2022-12-16] MEDS ORDERED: ACETAMINOPHEN TAB 500 MG TAB PO STA (18:17)
--- NOTE | 2022-12-16 18:36 | ED ---
General Adult HPI - General Chief complaint: Upper Respiratory Infection Stated complaint: SOB Time Seen by Provider: 12/16/22 18:00 Source: patient, RN notes reviewed, old records reviewed Mode of arrival: ambulatory Limitations: no limitations - History of Present Illness Initial comments: Is a 47-year-old male presents emergency department stating that in October approximately on the or he was diagnosed with cold it. Patient states shortly thereafter his document prescription for albuterol and Zithromax he was unable to get them filled and he states that he can still has a cough and congestion and is not getting any better. Patient comes in now to be reevaluated. Patient states he is short of breath but that is only happening wh en he is coughing chronically. Patient denies any fever chills. Patient states he does have a mild headache. Patient denies any chest pain or palpitations. Patient denies abdominal pain patient denies nausea vomiting diarrhea. Patient denies any sore throat. - Related Data Home Medications Medication Instructions Recorded Confirmed Albuterol Sulfate [Albuterol 2 puff PO RT-QID PRN 04/19/20 04/19/20 Sulfate Hfa] Celecoxib [CeleBREX] 200 mg PO DAILY PRN 04/19/20 04/19/20 Diclofenac Sodium Gel [Voltaren 2 - 3 gm TOPICAL BID PRN 04/19/20 04/19/20 Gel] Docusate Sodium [Dok] 100 mg PO DAILY PRN 04/19/20 04/19/20 HYDROcodone/APAP 10-325MG [[place] 1 each PO BID PRN 04/19/20 04/19/20 10-325] Omeprazole 20 mg PO DAILY 04/19/20 04/19/20 QUEtiapine FUMARATE 100 mg PO DAILY 04/19/20 04/19/20 Umeclidinium [place] [Incruse 1 puff INHALATION RT-DAILY 04/19/20 04/19/20 Ellipta] rOPINIRole HCL [Requip] 0.5 mg PO HS 04/19/20 04/19/20 valACYclovir HCL [Valtrex] 100 mg PO Q12H PRN 04/19/20 04/19/20 Previous Rx's Medication Instructions Recorded Metoprolol Tartrate [Lopressor] 50 mg PO BID #60 tab 09/26/18 predniSONE 50 mg PO DAILY #5 tablet 05/16/20 Levofloxacin [Levaquin] 750 mg PO DAILY 5 Days #5 tab 05/29/20 Nirmatrelvir/Ritonavir [Paxlovid 1 each PO W/BRKFST #10 each 11/23/22 300-100 mg Pack (Eua)] predniSONE [Deltasone] 20 mg PO BID #10 tab 11/23/22 Allergies Allergy/AdvReac Type Severity Reaction Status Date / Time No Known Allergies Allergy Verified 12/16/22 17:53 Review of Systems ROS Statement: Those systems with pertinent positive or pertinent negative responses have been documented in the HPI. ROS Other: All systems not noted in ROS Statement are negative. Past Medical History Past Medical History: COPD, Hypertension, Liver Disease, Renal Disease Additional Past Medical History / Comment(s): pancreatitis, ETOh History of Any Multi-Drug Resistant Organisms: None Reported Past Surgical History: No Surgical Hx Reported Additional Past Surgical History / Comment(s): Bronchoscopy, lymph node removed Past Anesthesia/Blood Transfusion Reactions: No Reported Reaction Past Psychological History: No Psychological Hx Reported Smoking Status: Current every day smoker Past Alcohol Use History: Occasional Past Drug Use History: None Reported - Past Family History Mother Family Medical History: Hypertension Additional Family Medical History / Comment(s): Mother is alive at age 62 with history of hypertension. Father Additional Family Medical History / Comment(s): Father at age 36 from overdose of methadone and benzodiazepines with aspiration. Brother(s) Additional Family Medical History / Comment(s): Patient has 2 brothers with no major medical problems. Patient does not have any sisters. Patient does not have any children. General Exam - General Exam Comments Initial Comments: GENERAL: Patient is well-developed and well-nourished. Patient is nontoxic and well-h ydrated and is in mild distress. ENT: Neck is soft and supple. No significant lymphadenopathy is noted. Oropharynx is clear. Moist mucous membranes. Neck has full range of motion without eliciting any pain. Patient has no facial tenderness over the sinuses EYES: The sclera were anicteric and conjunctiva were pink and moist. Extraocular movements were intact and pupils were equal round and reactive to light. Eyelids were unremarkable. PULMONARY: Unlabored respirations. Good breath sounds bilaterally. No audible rales rhonchi or wheezing was noted. CARDIOVASCULAR: There is a regular rate and rhythm without any murmurs gallops or rubs. ABDOMEN: Soft and nontender with normal bowel sounds. SKIN: Skin is clear with no lesions or rashes and otherwise unremarkable. NEUROLOGIC: Patient is alert and oriented x3. Cranial nerves II through XII are grossly intact. Motor and sensory are also intact. Normal speech, volume and content. Symmetrical smile. MUSCULOSKELETAL: Normal extremities with adequate strength and full range of motion. LYMPHATICS: No significant lymphadenopathy is noted PSYCHIATRIC: Normal psychiatric evaluation. Limitations: no limitations Course Vital Signs 12/16/22 17:51 Temperature 97.3 F L Pulse Rate 110 H Respiratory 24 Rate Blood Pressure 137/72 O2 Sat by Pulse 97 Oximetry Medical Decision Making - Medical Decision Making Was pt. sent in by a medical professional or institution (, PA, SUPERVISOR ASBESTOS TEXTILE, urgent care, hospital, or penitentiary...) When possible be specific @ -No Did you speak to anyone other than the patient for history (EMS, parent, family, police, friend...)? What history was obtained from this source @ -No Did you review nursing and triage notes (agree or disagree)? Why? @ -I reviewed and agree with nursing and triage notes Were old charts reviewed (outside hosp., previous admission, EMS record, old EKG, old radiological studies, urgent care reports/EKG's, penitentiary records)? Report findings @ -No old charts were reviewed Differential Diagnosis (chest pain, altered mental status, abdominal pain women, abdominal pain men, vaginal bleeding, weakness, fever, dyspnea, syncope, headache, dizziness, GI bleed, back pain, seizure, CVA, palpatations, mental health)? @ -COVID, influenza A, influenza B, RSV, bronchitis, pneumonia, this is not an all inclusive list. EKG interpreted by me (3pts min.). @ -None X-rays interpreted by me (1pt min.). @ -Chest x-ray showed no acute abnormality CT interpreted by me (1pt min.). @ -None done U/S interpreted by me (1pt. min.). @ -None done What testing was considered but not performed or refused? (CT, X-rays, U/S, labs)? Why? @ -None What meds were considered but not given or refused? Why? @ -None Did you discuss the management of the patient with other professionals (professionals i.e. , PA, SUPERVISOR [employer]BE[employer] TEXTILE, lab, RT, psych nurse, director of social media marketing, health promotion manager, teacher, aviation safety officer, pillowcase sewer)? Give summary @ -No Was smoking cessation discussed for >3mins.? @ -No Was critical care preformed (if so, how long)? @ -No Were there social determinants of health that impacted care today? How? (Homelessness, low income, unemployed, alcoholism, drug addiction, transportation, low edu. Level, literacy, decrease access to med. care, fpc, rehab)? @ -No Was there de-escalation of care discussed even if they declined (Discuss DNR or withdrawal of care, Hospice)? DNR status @ -No What co-morbidities impacted this encounter? (DM, HTN, Smoking, COPD, CAD, Cancer, CVA, ARF, Chemo, Hep., AIDS, mental health diagnosis, sleep apnea, morbid obesity)? @ -None Was patient admitted / discharged? Hospital course, mention meds given and route, prescriptions, significant lab abnormalities, going to OR and other pertinent info. @ -Patient was oxygenating 100% throughout his stay in the emergency department. Patient was in no respiratory distress any time. I stopped in the room at least on 2 different occasions and patient did not appear to be in any d istress. Patient was frustrated because he was not feeling better since he had COVID but he also has not followed up with his primary medical care doctor. Patient did not get any of his prescriptions filled that his diabetic doctor gave him because of some sort of insurance problem. Patient did receive some Tylenol for his headache while in the emergency department. Undiagnosed new problem with uncertain prognosis? @ -No Drug Therapy requiring intensive monitoring for toxicity (Heparin, Nitro, Insulin, Cardizem)? @ -No Were any procedures done? @ -No Diagnosis/symptom? @ -COVID 19 Acute, or Chronic, or Acute on Chronic? @ -Acute Uncomplicated (without systemic symptoms) or Complicated (systemic symptoms)? @ -Uncomplicated Side effects of treatment? @ -No Exacerbation, Progression, or Severe Exacerbation? @ -No Poses a threat to life or bodily function? How? (Chest pain, [place], [place], pneumonia, PE, COPD, DKA, ARF, appy, cholecystitis, CVA, Diverticulitis, Homicidal, Suicidal, threat to staff... and all critical care pts) @ -No - Lab Data Lab Results 12/16/22 Range/Units 18:31 Influenza Type A (PCR) Not Detected (Not Detectd) Influenza Type B (PCR) Not Detected (Not Detectd) RSV (PCR) Not Detected (Not Detectd) SARS-CoV-2 (PCR) Detected A (Not Detectd) Disposition Clinical Impression: COVID-19 Disposition: HOME SELF-CARE Instructions (If sedation given, give patient instructions): COVID-19 (Coronavirus Disease 2019) (ED) Is patient prescribed a controlled substance at d/c from ED?: No Referrals: Nash Jacob DO [Primary Care Provider] - 1-2 days Time of Disposition: 20:05
--- NOTE | 2022-12-16 20:05 | XR ---
EXAMINATION TYPE: XR chest 2V DATE OF EXAM: 12/16/2022 6:40 PM COMPARISON: Chest radiographs from 11/23/2022 TECHNIQUE: XR chest 2V Frontal and lateral views of the chest. CLINICAL INDICATION:Male, 47 years old with history of Difficulty breathing ; FINDINGS: Lungs/Pleura: There is no evidence of pleural effusion, focal consolidation, or pneumothorax. Pulmonary vascularity: Unremarkable. Heart/mediastinum: Cardiomediastinal silhouette is unremarkable. Musculoskeletal: No acute osseous pathology. IMPRESSION: No acute cardiopulmonary disease/process.
== END 2022-12-16 20:44 | disposition home or self-care (01) ==
LOC: EC 17:43
DX: U07.1 COVID-19 (principal); J44.9 Chronic obstructive pulmonary disease, unspecified; I10 Essential (primary) hypertension; F17.200 Nicotine dependence, unspecified, uncomplicated; Z79.899 Other long term (current) drug therapy; Z79.51 Long term (current) use of inhaled steroids
CPT/HCPCS: 71046; 87636; 99285

== ENCOUNTER → 2023-09-28 | Outpatient (CLI) | payer OTHER ==
[2023-09-28 19:12] LABS: ALT 16 U/L (10-49); AST 22 U/L (14-35); Blood Urea Nitrogen 15.5 mg/dL (9.0-27.0); Uric Acid 7.3 mg/dL (3.7-8.7)
== END | disposition home or self-care (01) ==
LOC: LABWHC1 14:15
PROVIDERS: ATTEND Podiatrist
DX: M10.9 Gout, unspecified (principal)
CPT/HCPCS: 36415; 82565; 84450; 84460; 84520; 84550

== ENCOUNTER → 2023-10-20 | Outpatient (CLI) | payer OTHER ==
[2023-10-20 16:57] LABS: African American GFR (CKD) >90 (>60 ml/min/1.73 sqM); Anion Gap 10 mmol/L; Blood Urea Nitrogen 18 mg/dL (9-20); Calcium 9.6 mg/dL (8.4-10.2); Carbon Dioxide 24 mmol/L (22-30); Chloride 106 mmol/L (98-107); Glucose 100 mg/dL (74-99); Non-African American GFR(CKD) 88 (>60 ml/min/1.73 sqM); Sodium 140 mmol/L (137-145)
[2023-10-20 17:05] LABS: Potassium 4.2 mmol/L (3.5-5.1)
== END | disposition home or self-care (01) ==
LOC: LABWHC1 15:43
PROVIDERS: ATTEND Internal Medicine Nephrology
DX: E87.5 Hyperkalemia (principal); E87.6 Hypokalemia
CPT/HCPCS: 36415; 80048

== ENCOUNTER 2023-11-08 15:40 | Emergency (ER) | payer OTHER ==
[2023-11-08 16:38] VITALS: PULSE 91; RESP 18
--- NOTE | 2023-11-08 16:57 | ED ---
Alcohol HPI - General Chief Complaint: Alcohol Stated Complaint: etoh Time Seen by Provider: 11/08/23 16:22 Source: EMS, RN notes reviewed, old records reviewed Mode of arrival: EMS Limitations: altered mental status - History of Present Illness Initial Comments: This 40-year-old male to the emergency department for evaluation of significant altered mental status. Patient has complication of alcohol intoxication as well as taking opiates today. Patient currently awake and alert has no complaints MD Complaint: alcohol intoxication Last Drink: just [employer] -: minute(s) Previous Visits for Alcohol Intoxication?: Yes Recent Trauma: Yes Associated Symptoms: denies other symptoms, hematemesis Chronic Alcohol Use: Yes - Related Data Home Medications Medication Instructions Recorded Confirmed Albuterol Sulfate [Albuterol 2 puff PO RT-Q6H PRN 04/19/20 11/08/23 Sulfate Hfa] Buprenorphine/Naloxone 8Mg/2Mg 1 film SL BID 11/08/23 11/08/23 [Suboxone 8-2Mg Film] Chlorthalidone [Hygroton] 25 mg PO DAILY 11/08/23 11/08/23 Ergocalciferol (Vitamin D2) 1,250 mcg PO WEEKLY 11/08/23 11/08/23 [Drisdol (50,000 Iu)] Folic Acid 1 mg PO DAILY 11/08/23 11/08/23 Gabapentin [Neurontin] 300 mg PO BID 11/08/23 11/08/23 Ipratropium Patterson [Atrovent Hfa] 2 puff INHALATION RT-Q6H 11/08/23 11/08/23 Magnesium Oxide [Mag-Ox] 400 mg PO HS 11/08/23 11/08/23 Multivitamins, Thera [Multivitamin 1 tab PO DAILY 11/08/23 11/08/23 (formulary)] Ondansetron Odt [Zofran Odt] 4 mg PO Q8HR PRN 11/08/23 11/08/23 QUEtiapine [SEROquel] 50 mg PO BID 11/08/23 11/08/23 Thiamine [Vitamin B-1] 100 mg PO DAILY 11/08/23 11/08/23 tadalafiL 5 - 10 mg PO DAILY PRN 11/08/23 11/08/23 traZODone HCL [Desyrel] 50 mg PO HS 11/08/23 11/08/23 Previous Rx's Medication Instructions Recorded Metoprolol Tartrate [Lopressor] 50 mg PO BID #60 tab 09/26/18 Allergies Allergy/AdvReac Type Severity Reaction Status Date / Time No Known Allergies Allergy Verified 11/08/23 16:35 Review of Systems ROS Statement: Those systems with pertinent positive or pertinent negative responses have been documented in the HPI. ROS Other: All systems not noted in ROS Statement are negative. Past Medical History Past Medical History: COPD, Hypertension, Liver Disease, Renal Disease Additional Past Medical History / Comment(s): pancreatitis, ETOh History of Any Multi-Drug Resistant Organisms: None Reported Past Surgical History: No Surgical Hx Reported Additional Past Surgical History / Comment(s): Bronchoscopy, lymph node removed Past Anesthesia/Blood Transfusion Reactions: No Reported Reaction Past Psychological History: No Psychological Hx Reported Smoking Status: Current every day smoker Past Alcohol Use History: Occasional Past Drug Use History: None Reported - Past Family History Mother Family Medical History: Hypertension Additional Family Medical History / Comment(s): Mother is alive at age 62 with history of hypertension. Father Additional Family Medical History / Comment(s): Father at age 36 from overdose of methadone and benzodiazepines with aspiration. Brother(s) Additional Family Medical History / Comment(s): Patient has 2 brothers with no major medical problems. Patient does not have any sisters. Patient does not have any children. General Exam Limitations: altered mental status General appearance: alert, in no apparent distress Head exam: Present: atraumatic, normocephalic, normal inspection Eye exam: Present: normal appearance, PERRL, EOMI. Absent: scleral icterus, conjunctival injection, periorbital swelling ENT exam: Present: normal exam, mucous membranes moist Neck exam: Present: normal inspection. Absent: tenderness, meningismus, lymphadenopathy Respiratory exam: Present: normal lung sounds bilaterally. Absent: respiratory distress, wheezes, rales, rhonchi, stridor Cardiovascular Exam: Present: regular rate, normal rhythm, normal heart sounds. Absent: systolic murmur, diastolic murmur, rubs, gallop, clicks GI/Abdominal exam: Present: soft, normal bowel sounds. Absent: distended, tenderness, guarding, rebound, rigid Extremities exam: Present: normal inspection, full ROM, normal capillary refill. Absent: tenderness, pedal edema, joint swelling, calf tenderness Back exam: Present: normal inspection Neurological exam: Present: alert, oriented X3, CN II-XII intact Psychiatric exam: Present: normal affect, normal mood Skin exam: Present: warm, dry, intact, normal color. Absent: rash Course Vital Signs 11/08/23 11/08/23 11/08/23 15:42 15:47 16:00 Pulse Rate 94 Respiratory 20 Rate Blood Pressure 110/95 110/95 O2 Sat by Pulse 97 75 L 72 L Oximetry 11/08/23 11/08/23 11/08/23 16:15 16:19 16:30 Pulse Rate 91 Respiratory 18 Rate Blood Pressure 114/80 114/87 114/87 O2 Sat by Pulse 90 L 96 Oximetry 11/08/23 16:45 Pulse Rate Respiratory Rate Blood Pressure 104/76 O2 Sat by Pulse Oximetry - Reevaluation(s) Reevaluation #1: Medical records reviewed Reevaluation #2: Patient symptoms are unchanged Patient feels also given discharge home Reevaluation #3: Patient informed results questions answered Medical Decision Making - Medical Decision Making 40 female to the emergency department with alcohol intoxication overdose. Patient's currently awake alert is able to be discharged home Disposition Clinical Impression: Alcohol intoxication, Opioid poisoning Disposition: HOME SELF-CARE Condition: Good Instructions (If sedation given, give patient instructions): Narcotic Safety (ED), Alcohol Intoxication (ED) Is patient prescribed a controlled substance at d/c from ED?: No Referrals: Nash Jacob DO [Primary Care Provider] - 1-2 days Time of Disposition: 16:55
[2023-11-08 17:02] VITALS: BP 104/76
== END 2023-11-08 17:30 | disposition home or self-care (01) ==
LOC: EC 15:40
DX: T40.2X1A Poisoning by other opioids, accidental (unintentional), initial encounter (principal); F10.129 Alcohol abuse with intoxication, unspecified; I10 Essential (primary) hypertension; J44.9 Chronic obstructive pulmonary disease, unspecified; F17.200 Nicotine dependence, unspecified, uncomplicated; Z79.899 Other long term (current) drug therapy
CPT/HCPCS: 99284